=== PATIENT | male | born 1990 | race African-American/Black ===

== ENCOUNTER 2016-06-07 14:00 | Emergency (ER) | payer SELFPAY ==
[~2016-06-07] VITALS: Ht 167.6 cm; Wt 66.0 kg
[~2016-06-07 14:00] MED LIST: ACET500C5 PO; INSU100V14 SC; LANT3I SC
[2016-06-07 14:04] VITALS: Ht 167.6 cm; Wt 66.0 kg
--- NOTE | 2016-06-07 15:19 | ERD ---
ER Documentation Chief Complaint Date/Time DATE: 06/07/16 TIME: 15:16 Chief Complaint ENCOUNTER FOR MEDICATION REFILL HPI This is a 25-year-old male who presents to the emergency Department today for a medication refill. Patient states he needs his insulin syringes. Patient does not have a doctor at this time is getting his insulin over the counter at [facility]. Patient denies any symptoms at this time.. ROS All systems reviewed and are negative except as per history of present illness. Medications Home Meds Active Scripts Insulin Glargine* (Lantus*) 100 Unit/Ml Soln, 30 UNIT SC QHS for 30 Days, VIAL Prov:RADHA RAMON PA-C 12/15/15 Insulin Regular, Human (Humulin R) 100 Units/Ml Vial, 8 U SC SLIDING SCALE AC Y for hyperglycemia for 30 Days, VIAL 8-12 units subcutaneous per sliding scale with meals Prov:RADHA RAMON PA-C 12/15/15 Acetaminophen* (Tylophen*) 500 Mg Capsule, 2 CAP PO Q8H Y for PAIN AND OR ELEVATED TEMP, #20 CAP Prov:ADELE VALENTIN 07/09/15 Allergies Allergies: Coded Allergies: No Known Drug Allergy (Verified Allergy, Mild, 07/09/15) PMhx/Soc History of Surgery: No Anesthesia Reaction: No Hx Neurological Disorder: No Hx Respiratory Disorders: No Hx Cardiac Disorders: No Hx Psychiatric Problems: No Hx Miscellaneous Medical Probl: Yes (DM I) Hx Alcohol Use: No Hx Substance Use: Yes (Marijuana ) Hx Tobacco Use: No Physical Exam Vitals Vital Signs Date Time Temp Pulse Resp B/P Pulse Ox O2 Delivery O2 Flow Rate FiO2 06/07/16 14:04 97.7 93 16 127/86 96 Physical Exam Const: Cooperative, no acute distress Head: Atraumatic Eyes: Normal Conjunctiva ENT: Normal External Ears, Nose and Mouth. Neck: Full range of motion..~ No meningismus. Resp: Clear to auscultation bilaterally Cardio: Regular rate and rhythm, no murmurs Abd: Soft, non tender, non distended. Normal bowel sounds Skin: No petechiae or rashes Neur: Awake and alert Psych: Normal Mood and Affect Procedures/MDM This is a 25-year-old male who presents to the emergency department today for medication refill on syringes for his insulin. He is a known type I diabetic here in the emergency department. Patient does not currently have a primary care physician as he states that he lost his medical insurance. States he isn't buying his insulin over the counter at [facility]. I did complain to the patient and he does need to get a primary care physician if given him a list of resources. Patient is currently not drinking any symptoms and has no complaints. Patient was given a prescription for syringes for his insulin. At this time the patient is stable for discharge and outpatient management. Patient should follow up with their PCP in the next 1-2 days. They may return to the emergency department sooner for any persistent or worsening of symptoms. Patient understood and agreed with the plan. Departure Diagnosis: Primary Impression: Encounter for medication refill Condition: Fair Patient Instructions: Taking Medicine Safely Referrals: COMMUNITY CLINICS YOU HAVE RECEIVED A MEDICAL SCREENING EXAM AND THE RESULTS INDICATE THAT YOU DO NOT HAVE A CONDITION THAT REQUIRES URGENT TREATMENT IN THE EMERGENCY DEPARTMENT. FURTHER EVALUATION AND TREATMENT OF YOUR CONDITION CAN WAIT UNTIL YOU ARE SEEN IN YOUR DOCTORS OFFICE WITHIN THE NEXT 1-2 DAYS. IT IS YOUR RESPONSIBILITY TO MAKE AN APPOINTMENT FOR FOLOW-UP CARE. IF YOU HAVE A PRIMARY DOCTOR --you should call your primary doctor and schedule an appointment IF YOU DO NOT HAVE A PRIMARY DOCTOR YOU CAN CALL OUR PHYSICIAN REFERRAL HOTLINE AT IF YOU CAN NOT AFFORD TO SEE A PHYSICIAN YOU CAN CHOSE FROM THE FOLLOWING [facility] [address] [facility]. [facility] [address] [facility] [facility] [address] [facility] [facility] [address] [address] [facility] [address] [facility]. [facility]. [address] Additional Instructions: Call your primary care doctor TOMORROW for an appointment during the next 1-2 days.See the doctor sooner or return here if your condition worsens before your appointment time. Take your insulin as prescribed PROUSE,BAILEY Ray PA-C Jun 07, 2016 15:19
== END 2016-06-07 15:14 | disposition home or self-care (01) ==
LOC: FTE 14:00
DX: Z76.0 Encounter for issue of repeat prescription (principal); E10.9 Type 1 diabetes mellitus without complications; Z79.4 Long term (current) use of insulin
CPT/HCPCS: 99281

== ENCOUNTER 2017-12-28 18:46 | Emergency (ER) | END 2017-12-28 19:05 | disposition left against medical advice (07) ==

== ENCOUNTER 2018-07-26 16:06 | Inpatient (IN) | payer SELFPAY ==
[~2018-07-26] VITALS: Ht 170.2 cm; Wt 66.9 kg
[2018-07-26] MEDS ORDERED: ONDANSETRON 4 MG INJ IV STA ×2 (17:04→18:37)
[2018-07-26] MEDS ORDERED: HYDROmorphONE 1 MG/ML SYG IV STA ×2 (17:04→18:37)
[2018-07-26] MEDS ORDERED: SOD CHLORIDE 0.9% 750 ML IV ONE (17:30)
[2018-07-26] MEDS ORDERED: METOCLOPRAMIDE 10 MG INJ IV ONE (17:30)
[2018-07-26] MEDS ORDERED: SOD CHLORIDE 0.9% 1,000 ML IV STA (17:55)
[2018-07-26] MEDS ORDERED: INSULIN LISPRO 100 UNIT/ML VIAL SC ONE (18:00)
[2018-07-26] MEDS ORDERED: GLUCOSE GEL 15 GRAM TUBE BUCCAL PRN ×2 (18:30→21:30)
[2018-07-26] MEDS ORDERED: DEXTROSE 50% 50 ML SYRINGE IV PRN ×4 (18:30→21:30)
[2018-07-26] MEDS ORDERED: GLUCAGON 1 MG INJ IM PRN ×2 (18:30→21:30)
[2018-07-26] MEDS ORDERED: GLUCOSE GEL 15 GRAM TUBE PO PRN ×4 (18:30→21:30)
[2018-07-26] MEDS ORDERED: LORAZEPAM 2 MG INJ IV ONE (19:00)
--- NOTE | 2018-07-26 19:18 | ERD ---
ER Documentation Chief Complaint Chief Complaint nausea vomiting starting this morning-bs at home = 330 HPI This is a 28-year-old male who is here for intractable vomiting. The patient says he has diabetes is insulin-dependent and has been taking his insulin not much lately. Is a very poor historian and very rude to staff myself. He does not want to give us any history. The patient says that after he brushed his teeth this morning he started having intractable vomiting. Patient says his entire abdomen hurts and has no diarrhea. No cough chest pain shortness of breath or headache. Patient keeps sticking his fingers down his throat making himself vomit. He keeps asking for pain medication. ROS All systems reviewed and are negative except as per history of present illness. Medications Home Meds Active Scripts Insulin Glargine* (Lantus*) 100 Unit/Ml Soln, 30 UNIT SC QHS for 30 Days, VIAL Prov:RADHA RAMON PA-C 12/15/15 Insulin Regular, Human (Humulin R) 100 Units/Ml Vial, 8 U SC SLIDING SCALE AC PRN for hyperglycemia for 30 Days, VIAL 8-12 units subcutaneous per sliding scale with meals Prov:RADHA RAMON PA-C 12/15/15 Acetaminophen* (Tylophen*) 500 Mg Capsule, 2 CAP PO Q8H PRN for PAIN AND OR E LEVATED TEMP, #20 CAP Prov:ADELE VALENTIN 07/09/15 Allergies Allergies: Coded Allergies: No Known Drug Allergy (Verified Allergy, Mild, 07/09/15) PMhx/Soc History of Surgery: No Anesthesia Reaction: No Hx Neurological Disorder: No Hx Respiratory Disorders: No Hx Cardiac Disorders: No Hx Psychiatric Problems: No Hx Miscellaneous Medical Probl: Yes (DM I) Hx Alcohol Use: No Hx Substance Use: Yes (Marijuana ) Hx Tobacco Use: No Smoking Status: Never smoker FmHx Family History: No coronary disease Physical Exam Vitals Vital Signs Date Temp Pulse Resp B/P (MAP) Pulse Ox O2 O2 Flow FiO2 Time Delivery Rate 07/26/18 52 18 140/78 96 Room Air 18:30 (98) 07/26/18 97.9 58 18 136/90 100 16:51 (105) Physical Exam Const: Well-developed, well-nourished Head: Atraumatic, normocephalic Eyes: Normal Conjunctiva, PERRLA, EOMI, normal sclera, no nystagmus ENT: Normal External Ears, Nose and Mouth, moist mucus membranes. Neck: Full range of motion. No meningismus, no lymphadenopathy. Resp: Clear to auscultation bilaterally, no wheezing, rhonchi, rales Cardio: Regular rate and rhythm, no murmurs, S1 S2 present Abd: Soft, diffuse mild to moderate tenderness, non distended. Normal bowel sounds, no guarding or rebound, no pulsitile abdominal masses or bruits Skin: No petechiae or rashes, no ecchymosis , no maculopapular rash Back: No midline or flank tenderness Ext: No cyanosis, or edema, FROM x 4, normal inspection, neurovascularly intact x 4 Neur: Awake and alert, STR 5/5 x 4, sensation intact x 4, no focal findings, cerebellum intact Psych: Normal Mood and Affect Result Diagram: 07/26/18171607/26/187 Results 24 hrs Laboratory Tests Test 07/26/18 17:17 07/26/18 17:21 07/26/18 18:30 White Blood Count 12.3 10^3/ul Red Blood Count 4.84 10^6/ul Hemoglobin 14.3 g/dl Hematocrit 42.0 % Mean Corpuscular Volume 86.8 fl Mean Corpuscular Hemoglobin 29.5 pg Mean Corpuscular 34.0 g/dl Hemoglobin Concent Red Cell Distribution Width 11.8 % Platelet Count 281 10^3/UL Mean Platelet Volume 10.4 fl Immature Granulocytes % 0.200 % Neutrophils % 84.0 % Lymphocytes % 7.4 % Monocytes % 8.2 % Eosinophils % 0.0 % Basophils % 0.2 % Nucleated Red Blood Cells % 0.0 /100WBC Immature Granulocytes # 0.030 10^3/ul Neutrophils # 10.3 10^3/ul Lymphocytes # 0.9 10^3/ul Monocytes # 1.0 10^3/ul Eosinophils # 0.0 10^3/ul Basophils # 0.0 10^3/ul Nucleated Red Blood Cells # 0.0 10^3/ul Sodium Level 143 mmol/L Potassium Level 4.2 mmol/L Chloride Level 97 mmol/L Carbon Dioxide Level 19 mmol/L Anion Gap 27 Blood Urea Nitrogen 20 mg/dl Creatinine 1.09 mg/dl Est Glomerular Filtrat Rate mL/min > 60 mL/min Glucose Level 359 mg/dl Calcium Level 10.7 mg/dl Phosphorus Level 2.0 mg/dl Magnesium Level 1.4 mg/dl Acetone Level (Chemistry) NEGATIVE Bedside Glucose 338 mg/dL 300 mg/dL Current Medications Medications Dose Sig/Leigh Ann Start Time Status Last (Trade) Ordered Route PRN Stop Time Admin Dose Reason Admin Sodium 750 ml @ ONCE ONCE 07/26/18 DC 07/26/18 Chloride 750 mls/hr IV 17:30 17:10 07/26/18 18:29 1 mg ONCE STAT 07/26/18 DC 07/26/18 Hydromorphone IV 17:04 17:10 HCl 07/26/18 17:06 (Dilaudid) Ondansetron 4 mg ONCE STAT 07/26/18 DC 07/26/18 HCl (Zofran IV 17:04 17:10 Inj) 07/26/18 17:06 10 mg ONCE ONCE 07/26/18 DC 07/26/18 Metoclopramid IV 17:30 17:10 e HCl 07/26/18 17:31 (Reglan) Sodium 1,000 ml @ Q1H STAT 07/26/18 DC 07/26/18 Chloride 1,000 mls/hr IV 17:55 18:14 07/26/18 18:54 Insulin 8 unit ONCE ONCE 07/26/18 DC 07/26/18 Human SC 18:00 18:39 Lispro 07/26/18 18:01 (Humalog) 1 ea NOTE XX 07/26/18 Miscellaneous 18:30 Information Glucose 15 gm Q15M PRN 07/26/18 (Glutose) PO DECREASED 18:30 GLUCOSE Glucose 22.5 gm Q15M PRN 07/26/18 (Glutose) PO DECREASED 18:30 GLUCOSE Dextrose 25 ml Q15M PRN 07/26/18 (D50w IV DECREASED 18:30 Syringe) GLUCOSE Dextrose 50 ml Q15M PRN 07/26/18 (D50w IV DECREASED 18:30 Syringe) GLUCOSE Glucagon 1 mg Q15M PRN 07/26/18 (Glucagen) IM DECREASED 18:30 GLUCOSE Glucose 15 gm Q15M PRN 07/26/18 (Glutose) BUCCAL 18:30 DECREASED GLUCOSE 1 mg ONCE STAT 07/26/18 DC 07/26/18 Hydromorphone IV 18:37 18:48 HCl 07/26/18 18:40 (Dilaudid) Ondansetron 4 mg ONCE STAT 07/26/18 DC 07/26/18 HCl (Zofran IV 18:37 18:47 Inj) 07/26/18 18:40 Lorazepam 1 mg ONCE ONCE 07/26/18 DC 07/26/18 (Ativan) IV 19:00 18:48 07/26/18 19:01 Procedures/MDM MR #: [id number] DOS: 07/26/18 1744 Ordering MD: ERIC RALPH DO Location: E/R Room/Bed: PROCEDURE: CT abdomen and pelvis without contrast. CLINICAL INDICATION: Abdominal pain. TECHNIQUE: CT scan of the abdomen and pelvis without contrast was performed on a multi-slice CT scanner . Sagittal and coronal reformatted images were obtained from the axial source images. One or more of the following dose reduction techniques were used: - Automated exposure control. - Adjustment of the mA and/or kV according to patient size. - Use of iterative reconstruction technique. DICOM images are available DLP 350.3 mGycm. CTDIvol 5.7 mGy COMPARISON: 07/14/2013 FINDINGS: Fine detail of the soft tissues is limited secondary to the lack of IV contrast. Evaluation for enhancing lesions cannot be performed. Lower thorax:The lung bases are clear. Liver: There is uniform density of the liver with no gross focal lesion. Biliary: The gallbladder is unremarkable without surrounding inflammation. No biliary dilatation. Pancreas: Homogeneous density of the pancreas without visible focal lesion or cystic abnormality. There is no pancreatic ductal dilatation. Spleen: Unremarkable without enlargement or focal lesion. Adrenal Glands: The adrenal glands are within normal limits without mass. Urinary: The kidneys are symmetric in size bilaterally. There are no visible renal or ureteral stones. There is no hydronephrosis. Gastrointestinal: There is colonic wall thickening and edema with decompression of the colon diffusely. Trace adjacent fat stranding is present. A normal- appearing appendix is not visible. There is no obstruction. Lymph nodes: There are no enlarged lymph nodes. Vascular: The aorta is unremarkable. Peritoneum/mesentery: No free fluid or free air. Reproductive organs: The prostate is grossly unremarkable. Musculoskeletal: There is no acute osseous abnormality. Other: None IMPRESSION: Findings suggestive for colitis which may be infectious or inflammatory without obstruction. There is no normal appearing appendix and this may be obscured by adjacent structures. No renal or ureteral calculi with no evidence of hydronephrosis. RPTAT: AA .Yolanda Castrejon MD, Date Time Electronically viewed and signed by .Yolanda Castrejon MD, MD on 07/26/2018 18:19 .J/ CC: ERIC RALPH DO [id number] Patient was given IV fluids, Dilaudid and Zofran and Reglan. Patient was fine for a while but he said his pain began again with some more vomiting. The patient is not in DKA although he is acidotic and has a gap is acetone is negative this is likely due to dehydration. Patient has diffuse colon wall thickening with edema and fat stranding consistent with colitis. In light of this with intractable nausea vomiting with being an insulin-dependent diabetic and bordering on going into DKA will admit him for fluids, pain control, antibiotics and observation Departure Diagnosis: Primary Impression: Colitis Additional Impressions: Intractable vomiting Vomiting type: unspecified Nausea presence: with nausea Qualified Codes: R11.2 - Nausea with vomiting, unspecified Uncontrolled diabetes mellitus Diabetes mellitus type: type 1 Glycemic state: with hyperglycemia Qualified Codes: E10.65 - Type 1 diabetes mellitus with hyperglycemia Condition: Stable ERIC RALPH DO Jul 26, 2018 19:18
[2018-07-26] MEDS ORDERED: SOD CHLORIDE 0.9% 1,000 ML IV SCH (19:49)
[2018-07-26] MEDS ORDERED: ERTAPENEM SODIUM 1 GM in SOD CHLORIDE 0.9% 100 ML IVPB ONE (20:00)
[2018-07-26] MEDS ORDERED: NACL 0.9% 3 ML SYG IV SCH (20:00)
[2018-07-26] MEDS ORDERED: ACETAMINOPHEN 325 MG TAB PO PRN (20:00)
--- NOTE | 2018-07-26 20:51 | HP ---
Date/Time of Note Date/Time of Note DATE: 07/26/18 TIME: 20:45 Assessment/Plan VTE Prophylaxis Pharmacological prophylaxis: heparin Lines/Catheters IV [facility]ter [facility]from [facility] Peripheral IV Assessment/Plan Hospital Course This is a 28-year-old male with a history of type 1 diabetes and heavy marijuana use who presents with nausea and vomiting as well as severe hyperglycemia. Imaging findings are suggestive of colitis. It is not clear to me whether this is an infectious colitis or not. He does have diarrhea but his GI symptoms seem to consist most only of nausea and vomiting. It is possible this is related to his marijuana use as he himself can sitters. Regardless at this point we will continue antibiotics and treat hyperglycemia Colitis: -Continue empiric antibiotics though not clear at all that this is not a bacterial infection. We should have a low threshold to stop them -We will check a C. difficile PCR -Symptomatic care Diabetes type 1 with hyperglycemia: -Basal bolus insulin - Poor control here though he says he is adherent to daily insulin regimen Marijuana use disorder: -Advised on cessation Discharge plan is pending improvement in his symptoms but he is high functioning and will not require any skilled needs at discharge Result Diagram: 07/26/18 1717 07/26/18 1717 Results 24hrs Laboratory Tests Test 07/26/18 17:17 07/26/18 17:21 07/26/18 18:30 White Blood Count 12.3 #H Red Blood Count 4.84 Hemoglobin 14.3 Hematocrit 42.0 Mean Corpuscular Volume 86.8 Mean Corpuscular Hemoglobin 29.5 Mean Corpuscular Hemoglobin Concent 34.0 Red Cell Distribution Width 11.8 Platelet Count 281 Mean Platelet Volume 10.4 # Immature Granulocytes % 0.200 Neutrophils % 84.0 H Lymphocytes % 7.4 L Monocytes % 8.2 Eosinophils % 0.0 Basophils % 0.2 Nucleated Red Blood Cells % 0.0 Immature Granulocytes # 0.030 Neutrophils # 10.3 H Lymphocytes # 0.9 Monocytes # 1.0 H Eosinophils # 0.0 Basophils # 0.0 Nucleated Red Blood Cells # 0.0 Sodium Level 143 Potassium Level 4.2 Chloride Level 97 Carbon Dioxide Level 19 L Anion Gap 27 H Blood Urea Nitrogen 20 Creatinine 1.09 Est Glomerular Filtrat Rate mL/min > 60 Glucose Level 359 H Calcium Level 10.7 H Phosphorus Level 2.0 L Magnesium Level 1.4 L Acetone Level (Chemistry) NEGATIVE Bedside Glucose 338 H 300 H HPI/ROS Admit Date/Time Admit Date/Time Hx of Present Illness This is a 28-year-old male with a history of type 1 diabetes with poor control who comes in with nausea vomiting abdominal pain Patient provides somewhat of an odd history. He says that for the past couple days when he brushes teeth the toothpaste makes him nauseous and then he has disabling nausea with abdominal pain. he says this is happened just since yesterday and seems to attribute all symptoms to toothpaste. Yesterday it was tolerable but today lasted for hours and symptoms became intolerable so he came to the hospital he also reports watery diarrhea just since today. Of note he is a chronic marijuana user and does seem to find some relief with hot showers I r aise the question of cannabinoid hyperemesis syndrome and he seemed to think that this fit his symptoms fairly clearly.. That said however in the ED he had a CAT scan which showed colitis. He denies any fevers denies any history of colitis denies any blood or mucus in his stool. His diarrhea today has just been watery PMH/Family/Social Past Medical History Medical History: diabetes Medications Current Medications Miscellaneous Information 1 ea NOTE XX ; Start 07/26/18 at 18:30 Glucose (Glutose) 15 gm Q15M PRN PO DECREASED GLUCOSE; Start 07/26/18 at 18:30 Glucose (Glutose) 22.5 gm Q15M PRN PO DECREASED GLUCOSE; Start 07/26/18 at 18:30 Dextrose (D50w Syringe) 25 ml Q15M PRN IV DECREASED GLUCOSE; Start 07/26/18 at 18:30 Dextrose (D50w Syringe) 50 ml Q15M PRN IV DECREASED GLUCOSE; Start 07/26/18 at 18:30 Glucagon (Glucagen) 1 mg Q15M PRN IM DECREASED GLUCOSE; Start 07/26/18 at 18:30 Glucose (Glutose) 15 gm Q15M PRN BUCCAL DECREASED GLUCOSE; Start 07/26/18 at 18:30 Sodium Chloride 1,000 ml @ 80 mls/hr [id number] IV ; Start 07/26/18 at 19:49; Stop 07/27/18 at 08:18 Ondansetron HCl (Zofran Inj) 4 mg BRIDGE ORDER PRN IV NAUSEA/VOMITING; Start 07/26/18 at 20:00; Stop 07/27/18 at 19:59 Acetaminophen (Tylenol Tab) 650 mg ER BRIDGE PRN PO .MILD PAIN 1-3 OR TEMP; Start 07/26/18 at 20:00; Stop 07/27/18 at 19:59 Piperacillin Sod/ Tazobactam Sod 100 ml @ 200 mls/hr Q8 IVPB ; Start 07/26/18 at 22:00; Status UNV Insulin Glargine (Lantus) 19 units DAILY@2000 SC ; Start 07/26/18 at 20:00; Status UNV Insulin Aspart (Novolog Insulin Pen) 5 unit WITH MEALS SC ; Start 07/27/18 at 08:00; Status UNV Insulin Aspart (Novolog Insulin Pen) NOVOLOG *MODERATE* ALGORITHM WITH MEALS BEDTIME SC ; Start 07/26/18 at 21:00; Status UNV IV Flush (NS 3 ml) 3 ml PER PROTOCOL IV ; Start 07/26/18 at 20:00; Status UNV Acetaminophen/ Hydrocodone Bitart ([place] (5/325)) 2 tab Q6H PRN PO .SEVERE PAIN 7-10; Start 07/26/18 at 20:00; Status UNV Coded Allergies: No Known Drug Allergy (Verified Allergy, Mild, 07/09/15) Past Surgical History Past Surgical Hx: no surgical history Family History Significant Family History: no pertinent family hx Social History Alcohol Use: none Smoking Status: Never smoker Drug Use: marijuana Exam/Review of Systems Vital Signs Vitals Vital Signs Date Temp Pulse Resp B/P (MAP) Pulse Ox O2 O2 Flow FiO2 Time Delivery Rate 07/26/18 52 18 140/78 96 Room Air 18:30 (98) 07/26/18 97.9 16:51 Exam Constitutional: alert, oriented, well developed Psych: no complaints, nl mood/affect Head: normocephalic, atraumatic Eyes: nl conjunctiva, EOMI, nl lids, nl sclera, PERRL ENMT: nl external ears & nose, nl lips & teeth, nl nasal mucosa & septum Neck: supple, non-tender Respiratory: clear to auscultation, normal air movement Cardiovascular: regular rate and rhythm, nl pulses Gastrointestinal: soft, nl liver, spleen, non-tender Musculoskeletal: nl extremities to inspection Extremities: normal pulses Neurological: [employer]ODUCTION MANAGER II-XII intact, nl mental status, nl speech, nl strength Skin: nl turgor; No rash or lesions Lymph: nl lymph nodes IAIN JOHNSON MD Jul 26, 2018 20:51
[2018-07-26 22:17] VITALS: BP 110/54; PULSE 71; RESP 18
[2018-07-26] MEDS: PIPER-TAZO 3.375 GM IV (PMX) 100 ML IVPB SCH (22:21)
[2018-07-26] MEDS ORDERED: HUM100VI13 SQ (22:25)
[2018-07-26 22:34] VITALS: Ht 170.2 cm; Wt 66.9 kg
[2018-07-26] MEDS: INSULIN ASPART [NOVOLOG] 3 ML PEN SC SCH (23:39)
[2018-07-26] MEDS: INSULIN GLARGINE [LANTus] (100 UNITS/ML) SYG SC SCH (23:39)
[2018-07-27 02:15] VITALS: BP 139/63; RESP 18
[2018-07-27] MEDS: PIPER-TAZO 3.375 GM IV (PMX) 100 ML IVPB SCH ×3 (06:33→21:03)
[2018-07-27 07:37] VITALS: BP 135/75; PULSE 76; RESP 16
[2018-07-27] MEDS: ONDANSETRON 4 MG INJ IV PRN ×3 (07:55→20:55)
[2018-07-27] MEDS: INSULIN ASPART [NOVOLOG] 3 ML PEN SC SCH ×7 (09:36→21:55)
[2018-07-27] MEDS ORDERED: METOCLOPRAMIDE 10 MG INJ IV PRN (11:30)
--- NOTE | 2018-07-27 14:23 | CONS ---
Assessment/Plan Assessment/Plan Hospital Course (Demo Recall) Summary Assessment and Plan: Assessment: Diarrhea- stool studies pending Colitis on imaging -Infectious vs inflammatory Abdominal pain- 2/2 to above Nausea/vomiting -Cannabinoid hyperemesis syndrome versus gastroparesis vs PUD vs other DM, type 1 Hx of PCI with stent placement in 2017 Chronic excessive Marijuana use Plan: CDIFF - negative PPI BID Monitor labs will ordered ESR, CRP Plan for EGD/colonoscopy- tomorrow Will prep with lactulose q2hr x4 doses- if patient is able to tolerate Will change Reglan to OTC q6hrs NPO except ice chips/meds- Reviewed risks/benefits with patient who verbalized understanding and is agreeable to procedure Patient seen in collaboration with Dr. Camacho CC: ISACC CAMACHO MD ; Consultation Date/Type/Reason Admit Date/Time Date of Consultation: Jul 27, 2018 Type of Consult GI Reason for Consultation Colitis/nausea/vomiting Date/Time of Note DATE: 07/27/18 TIME: 13:36 Hx of Present Illness This is a 28 year old male with PMH of PCI with stent placement in 2017, DM, type 1, chronic marijuana use, who presented to the ED with c/o persistent nausea/vomiting/diarrhea/generalized abdominal pain. He initially noted increased nausea after brushing his teeth however throughout the day symptoms of nausea/vomiting became progressively worse associated with generalized abdominal pain and diarrhea. Patient came to the ED for further evaluation. With workup patient noted to have leukocytosis of 12.3 today is 15.1 hemoglobin is 12.6 today with a normal MCV and MCH, with indirect hyperbilirubinemia and an AST of 58 with a normal ALT of 31. Additionally a CT abdomen pelvis was obtained, impression indicates findings suggestive of colitis is unclear if this is secondary to infection versus inflammatory process. No obstruction is noted. There there is no normal-appearing appendix and this may be obscured by adjacent structures. No renal or ureteral calculi with no evidence of hydronephrosis. At time evaluation patient states he needs to have watery diarrhea to 3 times per day. Continues to have nausea/vomiting however symptoms improved with pain med ication and nausea medication. Of note patient has taken 4 showers today which seems to help with symptoms and goes along with can avoid hyperemesis syndrome. No c/o melena, hematochezia.or hematemesis. Pending work up patient may require endoscopic evaluation. Review of Systems: A 12 system, review was conducted and is negative except as noted in the HPI or here. Past Medical History Medical History: diabetes Home Meds Active Scripts Insulin Regular, Human (Humulin R) 100 Units/Ml Vial, 8 U SC SLIDING SCALE AC PRN for hyperglycemia for 30 Days, VIAL 8-12 units subcutaneous per sliding scale with meals Prov:RADHA RAMON PA-C 12/15/15 Acetaminophen* (Tylophen*) 500 Mg Capsule, 2 CAP PO Q8H PRN for PAIN AND OR ELEVATED TEMP, #20 CAP Prov:ADELE VALENTIN 07/09/15 Reported Medications Insulin NPH Hum/Reg Insulin Hm (Relion Novolin 70-30 Vial) 100 Unit/1 Ml Vial, 30 UNIT SQ TIDM A, VIAL 07/26/18 Discontinued Scripts Insulin Glargine* (Lantus*) 100 Unit/Ml Soln, 30 UNIT SC QHS for 30 Days, VIAL Prov:RADHA RAMNO PA-C 12/15/15 Medications Current Medications Miscellaneous Information 1 ea NOTE XX ; Start 07/26/18 at 18:30 Glucose (Glutose) 15 gm Q15M PRN PO DECREASED GLUCOSE; Start 07/26/18 at 18:30 Glucose (Glutose) 22.5 gm Q15M PRN PO DECREASED GLUCOSE; Start 07/26/18 at 18:30 Dextrose (D50w Syringe) 25 ml Q15M PRN IV DECREASED GLUCOSE; Start 07/26/18 at 18:30 Dextrose (D50w Syringe) 50 ml Q15M PRN IV DECREASED GLUCOSE; Start 07/26/18 at 18:30 Glucagon (Glucagen) 1 mg Q15M PRN IM DECREASED GLUCOSE; Start 07/26/18 at 18:30 Glucose (Glutose) 15 gm Q15M PRN BUCCAL DECREASED GLUCOSE; Start 07/26/18 at 18:30 Ondansetron HCl (Zofran Inj) 4 mg BRIDGE ORDER PRN IV NAUSEA/VOMITING Last administered on 07/27/18at 07:55; Admin Dose 4 MG; Start 07/26/18 at 20:00; Stop 07/27/18 at 19:59 Acetaminophen (Tylenol Tab) 650 mg ER BRIDGE PRN PO .MILD PAIN 1-3 OR TEMP; Start 07/26/18 at 20:00; Stop 07/27/18 at 19:59 Piperacillin Sod/ Tazobactam Sod 100 ml @ 200 mls/hr Q8 IVPB Last administered on 07/27/18at 06:33; Admin Dose 200 MLS/HR; Start 07/26/18 at 22:00 Insulin Glargine (Lantus) 19 units DAILY@2000 SC Last administered on 07/26/18at 23:39; Admin Dose 19 UNITS; Start 07/26/18 at 20:00 Insulin Aspart (Novolog Insulin Pen) 5 unit WITH MEALS SC Last administered on 07/27/18 12:53; Admin Dose 5 UNIT; Start 07/27/18 at 08:00 Insulin Aspart (Novolog Insulin Pen) NOVOLOG *MODERATE* ALGORITHM WITH MEALS BEDTIME SC Last administered on 07/27/18 12:53; Admin Dose 4 UNIT; Start 07/26/18 at 21:00 IV Flush (NS 3 ml) 3 ml PER PROTOCOL IV ; Start 07/26/18 at 20:00 Acetaminophen/ Hydrocodone Bitart ([place] (5/325)) 2 tab Q6H PRN PO .SEVERE PAIN 7-10; Start 07/26/18 at 20:00 Miscellaneous Information 1 ea NOTE XX ; Start 07/26/18 at 21:30 Glucose (Glutose) 15 gm Q15M PRN PO DECREASED GLUCOSE; Start 07/26/18 at 21:30 Glucose (Glutose) 22.5 gm Q15M PRN PO DECREASED GLUCOSE; Start 07/26/18 at 21:30 Dextrose (D50w Syringe) 25 ml Q15M PRN IV DECREASED GLUCOSE; Start 07/26/18 at 21:30 Dextrose (D50w Syringe) 50 ml Q15M PRN IV DECREASED GLUCOSE; Start 07/26/18 at 21:30 Glucagon (Glucagen) 1 mg Q15M PRN IM DECREASED GLUCOSE; Start 07/26/18 at 21:30 Glucose (Glutose) 15 gm Q15M PRN BUCCAL DECREASED GLUCOSE; Start 07/26/18 at 21:30 Metoclopramide HCl (Reglan) 10 mg Q4H PRN IV VOMITTING Last administered on 07/27/18at 11:39; Admin Dose 10 MG; Start 07/27/18 at 11:30 Allergies: Coded Allergies: No Known Drug Allergy (Unverified Allergy, Mild, 07/26/18) Past Surgical History Past Surgical Hx: no surgical history Social History Alcohol Use: none Smoking Status: Never smoker Drug Use: marijuana Exam/Review of Systems Exam Vitals Vital Signs Date Temp Pulse Resp B/P (MAP) Pulse Ox O2 O2 Flow FiO2 Time Delivery Rate 07/27/18 98.9 76 16 135/75 97 07:37 (95) 07/26/18 Room Air 21:54 Intake and Output 07/26/18 07/26/18 07/27/18 1515:00 23:00 07:00 IntakeIntake Total 950 ml 580 ml BalanceBalance 950 ml 580 ml Constitutional: alert, oriented Psych: no complaints Head: normocephalic, atraumatic Eyes: nl conjunctiva ENMT: nl external ears & nose, nl lips & teeth Neck: supple Respiratory: clear to auscultation, normal air movement Cardiovascular: regular rate and rhythm Gastrointestinal: soft, non-tender, bowel sounds; No ascites, No distended, No firm, No mass Musculoskeletal: nl extremities to inspection Results Result Diagram: 07/27/184 07/27/18 0444 Results 24hrs Laboratory Tests Test 07/26/18 17:17 07/26/18 17:21 07/26/18 18:30 07/26/18 23:35 White Blood Count 12.3 #H Red Blood Count 4.84 Hemoglobin 14.3 Hematocrit 42.0 Mean Corpuscular 86.8 Volume Mean Corpuscular 29.5 Hemoglobin Mean Corpuscular 34.0 Hemoglobin Concent Red Cell 11.8 Distribution Width Platelet Count 281 Mean Platelet Volume 10.4 # Immature 0.200 Granulocytes % Neutrophils % 84.0 H Lymphocytes % 7.4 L Monocytes % 8.2 Eosinophils % 0.0 Basophils % 0.2 Nucleated Red Blood 0.0 Cells % Immature 0.030 Granulocytes # Neutrophils # 10.3 H Lymphocytes # 0.9 Monocytes # 1.0 H Eosinophils # 0.0 Basophils # 0.0 Nucleated Red Blood 0.0 Cells # Sodium Level 143 Potassium Level 4.2 Chloride Level 97 Carbon Dioxide Level 19 L Anion Gap 27 H Blood Urea Nitrogen 20 Creatinine 1.09 Est Glomerular > 60 Filtrat Rate mL/min Glucose Level 359 H Calcium Level 10.7 H Phosphorus Level 2.0 L Magnesium Level 1.4 L Acetone Level NEGATIVE (Chemistry) Bedside Glucose 338 H 300 H 127 Test 07/27/18 04:44 07/27/18 07:59 07/27/18 09:32 07/27/18 12:18 White Blood Count 15.1 #H Red Blood Count 4.18 L Hemoglobin 12.6 L Hematocrit 36.9 L Mean Corpuscular 88.3 Volume Mean Corpuscular 30.1 Hemoglobin Mean Corpuscular 34.1 Hemoglobin Concent Red Cell 11.8 Distribution Width Platelet Count 228 Mean Platelet Volume 10.2 Immature 0.700 H Granulocytes % Neutrophils % 81.4 H Lymphocytes % 11.3 L Monocytes % 6.4 Eosinophils % 0.0 Basophils % 0.2 Nucleated Red Blood 0.0 Cells % Immature 0.110 H Granulocytes # Neutrophils # 12.3 H Lymphocytes # 1.7 Monocytes # 1.0 H Eosinophils # 0.0 Basophils # 0.0 Nucleated Red Blood 0.0 Cells # Sodium Level 145 H Potassium Level 4.1 Chloride Level 103 Carbon Dioxide Level 23 Anion Gap 19 #H Blood Urea Nitrogen 20 Creatinine 1.01 Est Glomerular > 60 Filtrat Rate mL/min Glucose Level 212 # Hemoglobin A1c 7.8 H Calcium Level 9.6 Total Bilirubin 1.8 H Direct Bilirubin 0.00 Indirect Bilirubin 1.8 H Aspartate Amino 58 H Transf (AST/SGOT) Alanine 31 Aminotransferase (AL T/SGPT) Alkaline Phosphatase 55 Total Protein 7.5 Albumin 4.4 Globulin 3.10 Albumin/Globulin 1.41 Ratio Bedside Glucose 201 221 H 218 Medications Medication Current Medications Miscellaneous Information 1 ea NOTE XX ; Start 07/26/18 at 18:30 Glucose (Glutose) 15 gm Q15M PRN PO DECREASED GLUCOSE; Start 07/26/18 at 18:30 Glucose (Glutose) 22.5 gm Q15M PRN PO DECREASED GLUCOSE; Start 07/26/18 at 18:30 Dextrose (D50w Syringe) 25 ml Q15M PRN IV DECREASED GLUCOSE; Start 07/26/18 at 18:30 Dextrose (D50w Syringe) 50 ml Q15M PRN IV DECREASED GLUCOSE; Start 07/26/18 at 18:30 Glucagon (Glucagen) 1 mg Q15M PRN IM DECREASED GLUCOSE; Start 07/26/18 at 18:30 Glucose (Glutose) 15 gm Q15M PRN BUCCAL DECREASED GLUCOSE; Start 07/26/18 at 18:30 Ondansetron HCl (Zofran Inj) 4 mg BRIDGE ORDER PRN IV NAUSEA/VOMITING Last administered on 07/27/18at 07:55; Admin Dose 4 MG; Start 07/26/18 at 20:00; Stop 07/27/18 at 19:59 Acetaminophen (Tylenol Tab) 650 mg ER BRIDGE PRN PO .MILD PAIN 1-3 OR TEMP; Start 07/26/18 at 20:00; Stop 07/27/18 at 19:59 Piperacillin Sod/ Tazobactam Sod 100 ml @ 200 mls/hr Q8 IVPB Last administered on 07/27/18at 06:33; Admin Dose 200 MLS/HR; Start 07/26/18 at 22:00 Insulin Glargine (Lantus) 19 units DAILY@2000 SC Last administered on 07/26/18 23:39; Admin Dose 19 UNITS; Start 07/26/18 at 20:00 Insulin Aspart (Novolog Insulin Pen) 5 unit WITH MEALS SC Last administered on 07/27/18at 12:53; Admin Dose 5 UNIT; Start 07/27/18 at 08:00 Insulin Aspart (Novolog Insulin Pen) NOVOLOG *MODERATE* ALGORITHM WITH MEALS B EDTIME SC Last administered on 07/27/18 12:53; Admin Dose 4 UNIT; Start 07/26/18 at 21:00 IV Flush (NS 3 ml) 3 ml PER PROTOCOL IV ; Start 07/26/18 at 20:00 Acetaminophen/ Hydrocodone Bitart ([place] (5/325)) 2 tab Q6H PRN PO .SEVERE PAIN 7-10; Start 07/26/18 at 20:00 Miscellaneous Information 1 ea NOTE XX ; Start 07/26/18 at 21:30 Glucose (Glutose) 15 gm Q15M PRN PO DECREASED GLUCOSE; Start 07/26/18 at 21:30 Glucose (Glutose) 22.5 gm Q15M PRN PO DECREASED GLUCOSE; Start 07/26/18 at 21:30 Dextrose (D50w Syringe) 25 ml Q15M PRN IV DECREASED GLUCOSE; Start 07/26/18 at 21:30 Dextrose (D50w Syringe) 50 ml Q15M PRN IV DECREASED GLUCOSE; Start 07/26/18 at 21:30 Glucagon (Glucagen) 1 mg Q15M PRN IM DECREASED GLUCOSE; Start 07/26/18 at 21:30 Glucose (Glutose) 15 gm Q15M PRN BUCCAL DECREASED GLUCOSE; Start 07/26/18 at 21:30 Metoclopramide HCl (Reglan) 10 mg Q4H PRN IV VOMITTING Last administered on 07/27/18at 11:39; Admin Dose 10 MG; Start 07/27/18 at 11:30 JOSE PATEL Jul 27, 2018 13:46
[2018-07-27] MEDS: HYDROCODONE/APAP (5/325) TAB PO PRN ×2 (14:32→20:56)
[2018-07-27 15:24] VITALS: BP 133/66; PULSE 56; RESP 16
--- NOTE | 2018-07-27 15:31 | PN ---
Date/Time of Note Date/Time of Note DATE: 07/27/18 TIME: 15:21 Assessment/Plan VTE Prophylaxis Risk score (from Ns)>0 risk: 0 SCD applied (from Ns): Yes Pharmacological prophylaxis: other Pharm contraindication: low risk/ambulating Lines/Catheters IV Catheter Type [facility]from [facility] Peripheral IV Urinary Cath still in place: No Assessment/Plan Assessment/Plan 1. Nausea/vomiting, cannabinoid hyperemesis syndrome versus gastroparesis vs PUD vs other, on PPI 2. Colitis on CT scan with leukocytosis, negative for C. diff, on zosyn, follow up with GI 3. DM, type 1, insulin 4. CAD, s/p PCI with stent placement in 2017 5. Chronic excessive Marijuana use Result Diagram: 07/27/184 07/27/18 0444 Results 24hrs Laboratory Tests Test 07/26/18 17:17 07/26/18 17:21 07/26/18 18:30 07/26/18 23:35 White Blood Count 12.3 #H Red Blood Count 4.84 Hemoglobin 14.3 Hematocrit 42.0 Mean Corpuscular 86.8 Volume Mean Corpuscular 29.5 Hemoglobin Mean Corpuscular 34.0 Hemoglobin Concent Red Cell 11.8 Distribution Width Platelet Count 281 Mean Platelet Volume 10.4 # Immature 0.200 Granulocytes % Neutrophils % 84.0 H Lymphocytes % 7.4 L Monocytes % 8.2 Eosinophils % 0.0 Basophils % 0.2 Nucleated Red Blood 0.0 Cells % Immature 0.030 Granulocytes # Neutrophils # 10.3 H Lymphocytes # 0.9 Monocytes # 1.0 H Eosinophils # 0.0 Basophils # 0.0 Nucleated Red Blood 0.0 Cells # Sodium Level 143 Potassium Level 4.2 Chloride Level 97 Carbon Dioxide Level 19 L Anion Gap 27 H Blood Urea Nitrogen 20 Creatinine 1.09 Est Glomerular > 60 Filtrat Rate mL/min Glucose Level 359 H Calcium Level 10.7 H Phosphorus Level 2.0 L Magnesium Level 1.4 L Acetone Level NEGATIVE (Chemistry) Bedside Glucose 338 H 300 H 127 Test 07/27/18 04:44 07/27/18 07:59 07/27/18 09:32 07/27/18 12:18 White Blood Count 15.1 #H Red Blood Count 4.18 L Hemoglobin 12.6 L Hematocrit 36.9 L Mean Corpuscular 88.3 Volume Mean Corpuscular 30.1 Hemoglobin Mean Corpuscular 34.1 Hemoglobin Concent Red Cell 11.8 Distribution Width Platelet Count 228 Mean Platelet Volume 10.2 Immature 0.700 H Granulocytes % Neutrophils % 81.4 H Lymphocytes % 11.3 L Monocytes % 6.4 Eosinophils % 0.0 Basophils % 0.2 Nucleated Red Blood 0.0 Cells % Immature 0.110 H Granulocytes # Neutrophils # 12.3 H Lymphocytes # 1.7 Monocytes # 1.0 H Eosinophils # 0.0 Basophils # 0.0 Nucleated Red Blood 0.0 Cells # Sodium Level 145 H Potassium Level 4.1 Chloride Level 103 Carbon Dioxide Level 23 Anion Gap 19 #H Blood Urea Nitrogen 20 Creatinine 1.01 Est Glomerular > 60 Filtrat Rate mL/min Glucose Level 212 # Hemoglobin A1c 7.8 H Calcium Level 9.6 Total Bilirubin 1.8 H Direct Bilirubin 0.00 Indirect Bilirubin 1.8 H Aspartate Amino 58 H Transf (AST/SGOT) Alanine 31 Aminotransferase (AL T/SGPT) Alkaline Phosphatase 55 Total Protein 7.5 Albumin 4.4 Globulin 3.10 Albumin/Globulin 1.41 Ratio Bedside Glucose 201 221 H 218 Subjective 24 Hr Interval Summary Free Text/Dictation still with nausea, vomiting and diarrhea, abdominal pain Exam/Review of Systems Exam Vitals Vital Signs Date Temp Pulse Resp B/P (MAP) Pulse Ox O2 O2 Flow FiO2 Time Delivery Rate 07/27/18 98.9 76 16 135/75 97 07:37 (95) 07/26/18 Room Air 21:54 Intake and Output 07/26/18 07/26/18 07/27/18 1515:00 23:00 07:00 IntakeIntake Total 950 ml 580 ml BalanceBalance 950 ml 580 ml Constitutional: oriented, well developed Head: normocephalic, atraumatic Eyes: nl conjunctiva, EOMI, nl lids ENMT: nl external ears & nose, nl lips & teeth, nl nasal mucosa & septum Neck: supple, non-tender Respiratory: clear to auscultation, normal air movement; No congested cough, No crackles/rales, No diminished breath sounds, No intercostal retraction, No labored breathing, No respirations, No tactile fremitus, No wheezing, No other Cardiovascular: regular rate and rhythm, nl pulses; No bruits, No diastolic murmur, No edema, No gallop, No irregular rhythm, No jugular venous distention (JVD), No murmurs/extra sounds, No rub, No systolic murmur, No S3, No S4, No other Gastrointestinal: soft, nl liver, spleen, tender (diffuse) Musculoskeletal: nl extremities to inspection Extremities: normal pulses; No calf tenderness, No cyanosis, No clubbing, No edema, No pitting pedal maikol ma, No palpable cord, No tenderness, No other Neurological: 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, nl mental status, nl speech, nl strength Results Results 24hrs Laboratory Tests Test 07/26/18 17:17 07/26/18 17:21 07/26/18 18:30 07/26/18 23:35 White Blood Count 12.3 #H Red Blood Count 4.84 Hemoglobin 14.3 Hematocrit 42.0 Mean Corpuscular 86.8 Volume Mean Corpuscular 29.5 Hemoglobin Mean Corpuscular 34.0 Hemoglobin Concent Red Cell 11.8 Distribution Width Platelet Count 281 Mean Platelet Volume 10.4 # Immature 0.200 Granulocytes % Neutrophils % 84.0 H Lymphocytes % 7.4 L Monocytes % 8.2 Eosinophils % 0.0 Basophils % 0.2 Nucleated Red Blood 0.0 Cells % Immature 0.030 Granulocytes # Neutrophils # 10.3 H Lymphocytes # 0.9 Monocytes # 1.0 H Eosinophils # 0.0 Basophils # 0.0 Nucleated Red Blood 0.0 Cells # Sodium Level 143 Potassium Level 4.2 Chloride Level 97 Carbon Dioxide Level 19 L Anion Gap 27 H Blood Urea Nitrogen 20 Creatinine 1.09 Est Glomerular > 60 Filtrat Rate mL/min Glucose Level 359 H Calcium Level 10.7 H Phosphorus Level 2.0 L Magnesium Level 1.4 L Acetone Level NEGATIVE (Chemistry) Bedside Glucose 338 H 300 H 127 Test 07/27/18 04:44 07/27/18 07:59 07/27/18 09:32 07/27/18 12:18 White Blood Count 15.1 #H Red Blood Count 4.18 L Hemoglobin 12.6 L Hematocrit 36.9 L Mean Corpuscular 88.3 Volume Mean Corpuscular 30.1 Hemoglobin Mean Corpuscular 34.1 Hemoglobin Concent Red Cell 11.8 Distribution Width Platelet Count 228 Mean Platelet Volume 10.2 Immature 0.700 H Granulocytes % Neutrophils % 81.4 H Lymphocytes % 11.3 L Monocytes % 6.4 Eosinophils % 0.0 Basophils % 0.2 Nucleated Red Blood 0.0 Cells % Immature 0.110 H Granulocytes # Neutrophils # 12.3 H Lymphocytes # 1.7 Monocytes # 1.0 H Eosinophils # 0.0 Basophils # 0.0 Nucleated Red Blood 0.0 Cells # Sodium Level 145 H Potassium Level 4.1 Chloride Level 103 Carbon Dioxide Level 23 Anion Gap 19 #H Blood Urea Nitrogen 20 Creatinine 1.01 Est Glomerular > 60 Filtrat Rate mL/min Glucose Level 212 # Hemoglobin A1c 7.8 H Calcium Level 9.6 Total Bilirubin 1.8 H Direct Bilirubin 0.00 Indirect Bilirubin 1.8 H Aspartate Amino 58 H Transf (AST/SGOT) Alanine 31 Aminotransferase (AL T/SGPT) Alkaline Phosphatase 55 Total Protein 7.5 Albumin 4.4 Globulin 3.10 Albumin/Globulin 1.41 Ratio Bedside Glucose 201 221 H 218 Medications Medication Current Medications Miscellaneous Information 1 ea NOTE XX ; Start 07/26/18 at 18:30 Glucose (Glutose) 15 gm Q15M PRN PO DECREASED GLUCOSE; Start 07/26/18 at 18:30 Glucose (Glutose) 22.5 gm Q15M PRN PO DECREASED GLUCOSE; Start 07/26/18 at 18:30 Dextrose (D50w Syringe) 25 ml Q15M PRN IV DECREASED GLUCOSE; Start 07/26/18 at 18:30 Dextrose (D50w Syringe) 50 ml Q15M PRN IV DECREASED GLUCOSE; Start 07/26/18 at 18:30 Glucagon (Glucagen) 1 mg Q15M PRN IM DECREASED GLUCOSE; Start 07/26/18 at 18:30 Glucose (Glutose) 15 gm Q15M PRN BUCCAL DECREASED GLUCOSE; Start 07/26/18 at 18:30 Ondansetron HCl (Zofran Inj) 4 mg BRIDGE ORDER PRN IV NAUSEA/VOMITING Last administered on 07/27/18at 14:31; Admin Dose 4 MG; Start 07/26/18 at 20:00; Stop 07/27/18 at 19:59 Acetaminophen (Tylenol Tab) 650 mg ER BRIDGE PRN PO .MILD PAIN 1-3 OR TEMP; Start 07/26/18 at 20:00; Stop 07/27/18 at 19:59 Piperacillin Sod/ Tazobactam Sod 100 ml @ 200 mls/hr Q8 IVPB Last administered on 07/27/18 14:36; Admin Dose 200 MLS/HR; Start 07/26/18 at 22:00 Insulin Glargine (Lantus) 19 units DAILY@2000 SC Last administered on 07/26/18 23:39; Admin Dose 19 UNITS; Start 07/26/18 at 20:00 Insulin Aspart (Novolog Insulin Pen) 5 unit WITH MEALS SC Last administered on 07/27/18 12:53; Admin Dose 5 UNIT; Start 07/27/18 at 08:00 Insulin Aspart (Novolog Insulin Pen) NOVOLOG *MODERATE* ALGORITHM WITH MEALS BEDTIME SC Last administered on 07/27/18 12:53; Admin Dose 4 UNIT; Start 07/26/18 at 21:00 IV Flush (NS 3 ml) 3 ml PER PROTOCOL IV ; Start 07/26/18 at 20:00 Acetaminophen/ Hydrocodone Bitart ([place] (5/325)) 2 tab Q6H PRN PO .SEVERE PAIN 7-10 Last administered on 07/27/18 14:32; Admin Dose 2 TAB; Start 07/26/18 at 20:00 Miscellaneous Information 1 ea NOTE XX ; Start 07/26/18 at 21:30 Glucose (Glutose) 15 gm Q15M PRN PO DECREASED GLUCOSE; Start 07/26/18 at 21:30 Glucose (Glutose) 22.5 gm Q15M PRN PO DECREASED GLUCOSE; Start 07/26/18 at 21:30 Dextrose (D50w Syringe) 25 ml Q15M PRN IV DECREASED GLUCOSE; Start 07/26/18 at 21:30 Dextrose (D50w Syringe) 50 ml Q15M PRN IV DECREASED GLUCOSE; Start 07/26/18 at 21:30 Glucagon (Glucagen) 1 mg Q15M PRN IM DECREASED GLUCOSE; Start 07/26/18 at 21:30 Glucose (Glutose) 15 gm Q15M PRN BUCCAL DECREASED GLUCOSE; Start 07/26/18 at 21:30 Metoclopramide HCl (Reglan) 10 mg Q4H PRN IV VOMITTING Last administered on 07/27/18 11:39; Admin Dose 10 MG; Start 07/27/18 at 11:30 Pantoprazole (Protonix Iv) 40 mg BID@0600,1800 IV ; Start 07/28/18 at 06:00 DOMINIC JUAREZ MD Jul 27, 2018 15:31
[2018-07-27] MEDS: METOCLOPRAMIDE 10 MG INJ IV SCH ×2 (17:06→23:10)
[2018-07-27] MEDS: LACTULOSE 30ML CUP PO SCH ×4 (17:06→21:55)
[2018-07-27] MEDS: INSULIN GLARGINE [LANTus] (100 UNITS/ML) SYG SC SCH (21:54)
[2018-07-28] VITALS (13 sets, daily range): BP systolic 123–206; BP diastolic 69–126; PULSE 56–113; RESP 15–25
[2018-07-28] MEDS ORDERED: morphine 2 MG INJ IV ONE (01:12)
[2018-07-28] MEDS: ONDANSETRON 4 MG INJ IV PRN ×2 (03:01→09:17)
[2018-07-28] MEDS: PANTOPRAZOLE 40 MG INJ IV SCH ×2 (05:30→18:00)
[2018-07-28] MEDS: PIPER-TAZO 3.375 GM IV (PMX) 100 ML IVPB SCH ×3 (05:30→21:36)
[2018-07-28] MEDS: METOCLOPRAMIDE 10 MG INJ IV SCH ×4 (05:30→23:38)
[2018-07-28] MEDS ORDERED: PANTOPRAZOLE 40 MG INJ IV SCH (06:00)
[2018-07-28] MEDS: INSULIN ASPART [NOVOLOG] 3 ML PEN SC SCH ×8 (08:00→20:40)
[2018-07-28] MEDS: HYDROCODONE/APAP (5/325) TAB PO PRN (09:17)
[2018-07-28] MEDS ORDERED: HYDROmorphONE 0.5 MG/0.5 ML SYG IV PRN (10:30)
[2018-07-28] MEDS ORDERED: HALOPERIDOL 5 MG INJ IM PRN (12:30)
[2018-07-28] MEDS: LORAZEPAM 2 MG INJ IV PRN (12:41)
[2018-07-28] MEDS: SOD CHLORIDE 0.9% 1,000 ML IV SCH ×2 (12:45→20:30)
[2018-07-28] MEDS ORDERED: ONDANSETRON 4 MG INJ IV PRN (13:00)
--- NOTE | 2018-07-28 13:11 | PN ---
Date/Time of Note Date/Time of Note DATE: 07/28/18 TIME: 13:08 Assessment/Plan VTE Prophylaxis Risk score (from Ns)>0 risk: 0 SCD applied (from Ns): Yes Pharmacological prophylaxis: other Pharm contraindication: low risk/ambulating Lines/Catheters IV Catheter Type (from Nrsg): Peripheral IV Urinary Cath still in place: No Assessment/Plan Assessment/Plan 1. Nausea/vomiting, cannabinoid hyperemesis syndrome versus gastroparesis vs PUD vs other, on PPI, EGD today 2. Colitis on CT scan with leukocytosis, negative for C. diff, on zosyn, colonoscopy 3. DM, type 1, insulin 4. CAD, s/p PCI with stent placement in 2017 5. Chronic excessive Marijuana use Result Diagram: 07/27/184 07/27/184 Results 24hrs Laboratory Tests Test 07/27/18 17:35 07/27/18 21:52 07/28/18 09:19 07/28/18 13:06 Bedside Glucose 218 222 H 185 121 Subjective 24 Hr Interval Summary Free Text/Dictation nausea, abdominal pain Exam/Review of Systems Exam Vitals Vital Signs Date Temp Pulse Resp B/P (MAP) Pulse Ox O2 O2 Flow FiO2 Time Delivery Rate 07/28/18 98.1 56 18 156/84 99 01:47 (108) 07/26/18 Room Air 21:54 Intake and Output 07/27/18 07/27/18 07/28/18 1515:00 23:00 07:00 IntakeIntake Total 240 ml 720 ml 100 ml BalanceBalance 240 ml 720 ml 100 ml Constitutional: alert, oriented, well developed Head: normocephalic, atraumatic Eyes: nl conjunctiva, EOMI, nl lids, PERRL ENMT: nl external ears & nose, nl lips & teeth, nl nasal mucosa & septum Neck: supple, non-tender Respiratory: clear to auscultation, normal air movement; No congested cough, No crackles/rales, No diminished breath sounds, No intercostal retraction, No labored breathing, No respirations, No tactile fremitus, No wheezing, No other Cardiovascular: regular rate and rhythm, nl pulses; No bruits, No diastolic murmur, No edema, No gallop, No irregular rhythm, No jugular venous distention (JVD), No murmurs/extra sounds, No rub, No systolic murmur, No S3, No S4, No other Gastrointestinal: soft, nl liver, spleen, tender Musculoskeletal: nl extremities to inspection Extremities: normal pulses; No calf tenderness, No cyanosis, No clubbing, No edema, No pitting pedal ed tip, No palpable cord, No tenderness, No other Neurological: SACK SORTER II-XII intact, nl mental status, nl speech, nl strength Results Results 24hrs Laboratory Tests Test 07/27/18 17:35 07/27/18 21:52 07/28/18 09:19 07/28/18 13:06 Bedside Glucose 218 222 H 185 121 Medications Medication Current Medications Miscellaneous Information 1 ea NOTE XX ; Start 07/26/18 at 18:30 Glucose (Glutose) 15 gm Q15M PRN PO DECREASED GLUCOSE; Start 07/26/18 at 18:30 Glucose (Glutose) 22.5 gm Q15M PRN PO DECREASED GLUCOSE; Start 07/26/18 at 18:30 Dextrose (D50w Syringe) 25 ml Q15M PRN IV DECREASED GLUCOSE; Start 07/26/18 at 18:30 Dextrose (D50w Syringe) 50 ml Q15M PRN IV DECREASED GLUCOSE; Start 07/26/18 at 18:30 Glucagon (Glucagen) 1 mg Q15M PRN IM DECREASED GLUCOSE; Start 07/26/18 at 18:30 Glucose (Glutose) 15 gm Q15M PRN BUCCAL DECREASED GLUCOSE; Start 07/26/18 at 18:30 Piperacillin Sod/ Tazobactam Sod 100 ml @ 200 mls/hr Q8 IVPB Last administered on 07/28/18at 05:30; Admin Dose 200 MLS/HR; Start 07/26/18 at 22:00 Insulin Glargine (Lantus) 19 units DAILY@2000 SC Last administered on 07/27/18at 21:54; Admin Dose 19 UNITS; Start 07/26/18 at 20:00 Insulin Aspart (Novolog Insulin Pen) 5 unit WITH MEALS SC Last administered on 07/27/18at 17:49; Admin Dose 5 UNIT; Start 07/27/18 at 08:00 Insulin Aspart (Novolog Insulin Pen) NOVOLOG *MODERATE* ALGORITHM WITH MEALS BEDTIME SC Last administered on 07/28/18at 09:20; Admin Dose 4 UNIT; Start 07/26/18 at 21:00 IV Flush (NS 3 ml) 3 ml PER PROTOCOL IV ; Start 07/26/18 at 20:00 Acetaminophen/ Hydrocodone Bitart ([place] (5/325)) 2 tab Q6H PRN PO .SEVERE PAIN 7-10 Last administered on 07/27/18at 20:56; Admin Dose 2 TAB; Start 07/26/18 at 20:00 Miscellaneous Information 1 ea NOTE XX ; Start 07/26/18 at 21:30 Glucose (Glutose) 15 gm Q15M PRN PO DECREASED GLUCOSE; Start 07/26/18 at 21:30 Glucose (Glutose) 22.5 gm Q15M PRN PO DECREASED GLUCOSE; Start 07/26/18 at 21:30 Dextrose (D50w Syringe) 25 ml Q15M PRN IV DECREASED GLUCOSE; Start 07/26/18 at 21:30 Dextrose (D50w Syringe) 50 ml Q15M PRN IV DECREASED GLUCOSE; Start 07/26/18 at 21:30 Glucagon (Glucagen) 1 mg Q15M PRN IM DECREASED GLUCOSE; Start 07/26/18 at 21:30 Glucose (Glutose) 15 gm Q15M PRN BUCCAL DECREASED GLUCOSE; Start 07/26/18 at 21:30 Pantoprazole (Protonix Iv) 40 mg BID@0600,1800 IV Last administered on 07/28/18at 05:30; Admin Dose 40 MG; Start 07/28/18 at 06:00 Metoclopramide HCl (Reglan) 10 mg Q6 IV Last administered on 07/28/18at 13:02; Admin Dose 10 MG; Start 07/27/18 at 18:00 Sodium Chloride 1,000 ml @ 100 mls/hr Q10H IV Last administered on 07/28/18at 12:45; Admin Dose 100 MLS/HR; Start 07/28/18 at 10:30 Lorazepam (Ativan) 2 mg Q2H PRN IV nausea, anxiety Last administered on 07/28/18at 12:41; Admin Dose 2 MG; Start 07/28/18 at 12:30 Haloperidol (Haldol) 1 mg Q6H PRN IM agitation; Start 07/28/18 at 12:30 Ondansetron HCl (Zofran Inj) 4 mg Q4H PRN IV NAUSEA AND/OR VOMITING; Start 07/28/18 at 13:00 DOMINIC JUAREZ MD Jul 28, 2018 13:11
--- NOTE | 2018-07-28 14:55 | EN ---
Date/Time of Note Date/Time of Note DATE: 07/28/18 TIME: 14:50 Event Note Medicine Medicine Event Note Rapid response called because patient wouldn't get out of shower. Briefly, this is a 28 yo man who presents with abdominal pain and intractable vomiting, likely marijuana hyperemesis syndrome. Early this morning he got in the shower under hot water because it says it is the only thing which relieves his pain. Reports zofran and morphine both work only for a few moments before excruciating pain and vomiting recur. He says continuously running water is the only thing which helps. Unfortunately, this caused excessive condensation in the bathroom and there was concern of potential structural damage after several hours. We eventually got the patient out, he got IV ativan and haldol was ordered. 40 minutes spent caring for this patient. KWAKU ASTORGA MD Jul 28, 2018 14:54
[2018-07-28] MEDS ORDERED: DIPHENHYDRAMINE 50 MG INJ ONE (15:45)
[2018-07-28] MEDS ORDERED: ONDANSETRON 4 MG INJ ONE (15:45)
[2018-07-28] MEDS ORDERED: DEXTROSE 50% 50 ML SYRINGE ONE (16:23)
--- NOTE | 2018-07-28 17:02 | PREAC ---
Date/Time of Note Date/Time of Note DATE: 07/28/18 TIME: 17:00 Anesthesia Eval and Record Evaluation Time Pre-Procedure Interview DATE: 07/28/18 TIME: 17:00 Age 28 Sex male NPO: 8 hrs Preoperative diagnosis n/v Planned procedure EGD colonoscopy Past Medical History Past Medical History: Includes Endo: Diabetes GI: Other (colitis ) Recreational drugs: Marijuana Surgery & Anesthesia Issues No known issue Meds Anticoagulation: No Beta Erin within 24 hr: No Reason Beta Erin not given: Pt. not on B-Erin Active Scripts Insulin Regular, Human (Humulin R) 100 Units/Ml Vial, 8 U SC SLIDING SCALE AC PRN for hyperglycemia for 30 Days, VIAL 8-12 units subcutaneous per sliding scale with meals Prov:RADHA RAMON PA-C 12/15/15 Acetaminophen* (Tylophen*) 500 Mg Capsule, 2 CAP PO Q8H PRN for PAIN AND OR ELEVATED TEMP, #20 CAP Prov:ADELE VALENTIN 07/09/15 Reported Medications Insulin NPH Hum/Reg Insulin Hm (Relion Novolin 70-30 Vial) 100 Unit/1 Ml Vial, 30 UNIT SQ TIDM A, VIAL 07/26/18 Discontinued Scripts Insulin Glargine* (Lantus*) 100 Unit/Ml Soln, 30 UNIT SC QHS for 30 Days, VIAL Prov:RADHA RAMON PA-C 12/15/15 Current Medications Miscellaneous Information 1 ea NOTE XX ; Start 07/26/18 at 18:30 Glucose (Glutose) 15 gm Q15M PRN PO DECREASED GLUCOSE; Start 07/26/18 at 18:30 Glucose (Glutose) 22.5 gm Q15M PRN PO DECREASED GLUCOSE; Start 07/26/18 at 18:30 Dextrose (D50w Syringe) 25 ml Q15M PRN IV DECREASED GLUCOSE; Start 07/26/18 at 18:30 Dextrose (D50w Syringe) 50 ml Q15M PRN IV DECREASED GLUCOSE; Start 07/26/18 at 18:30 Glucagon (Glucagen) 1 mg Q15M PRN IM DECREASED GLUCOSE; Start 07/26/18 at 18:30 Glucose (Glutose) 15 gm Q15M PRN BUCCAL DECREASED GLUCOSE; Start 07/26/18 at 18:30 Piperacillin Sod/ Tazobactam Sod 100 ml @ 200 mls/hr Q8 IVPB Last administered on 07/28/18 14:18; Admin Dose 200 MLS/HR; Start 07/26/18 at 22:00 Insulin Glargine (Lantus) 19 units DAILY@2000 SC Last administered on 07/27/18 21:54; Admin Dose 19 UNITS; Start 07/26/18 at 20:00 Insulin Aspart (Novolog Insulin Pen) 5 unit WITH MEALS SC Last administered on 07/27/18 17:49; Admin Dose 5 UNIT; Start 07/27/18 at 08:00 Insulin Aspart (Novolog Insulin Pen) NOVOLOG *MODERATE* ALGORITHM WITH MEALS BEDTIME SC Last administered on 07/28/18 09:20; Admin Dose 4 UNIT; Start at 21:00 IV Flush (NS 3 ml) 3 ml PER PROTOCOL IV ; Start 07/26/18 at 20:00 Acetaminophen/ Hydrocodone Bitart ([place] (5/325)) 2 tab Q6H PRN PO .SEVERE PAIN 7-10 Last administered on 07/27/18 20:56; Admin Dose 2 TAB; Start 07/26/18 at 20:00 Miscellaneous Information 1 ea NOTE XX ; Start 07/26/18 at 21:30 Glucose (Glutose) 15 gm Q15M PRN PO DECREASED GLUCOSE; Start 07/26/18 at 21:30 Glucose (Glutose) 22.5 gm Q15M PRN PO DECREASED GLUCOSE; Start 07/26/18 at 21:30 Dextrose (D50w Syringe) 25 ml Q15M PRN IV DECREASED GLUCOSE; Start 07/26/18 at 21:30 Dextrose (D50w Syringe) 50 ml Q15M PRN IV DECREASED GLUCOSE; Start 07/26/18 at 21:30 Glucagon (Glucagen) 1 mg Q15M PRN IM DECREASED GLUCOSE; Start 07/26/18 at 21:30 Glucose (Glutose) 15 gm Q15M PRN BUCCAL DECREASED GLUCOSE; Start 07/26/18 at 21:30 Pantoprazole (Protonix Iv) 40 mg BID@0600,1800 IV Last administered on 07/28/18 05:30; Admin Dose 40 MG; Start 07/28/18 at 06:00 Metoclopramide HCl (Reglan) 10 mg Q6 IV Last administered on 2/21/19at 13:02; Admin Dose 10 MG; Start 07/27/18 at 18:00 Sodium Chloride 1,000 ml @ 100 mls/hr Q10H IV Last administered on 07/28/18at 12:45; Admin Dose 100 MLS/HR; Start 07/28/18 at 10:30 Lorazepam (Ativan) 2 mg Q2H PRN IV nausea, anxiety Last administered on 07/28/18at 12:41; Admin Dose 2 MG; Start 07/28/18 at 12:30 Haloperidol (Haldol) 1 mg Q6H PRN IM agitation; Start 07/28/18 at 12:30 Ondansetron HCl (Zofran Inj) 4 mg Q4H PRN IV NAUSEA AND/OR VOMITING; Start 07/28/18 at 13:00 Meds reviewed: Yes Allergies Coded Allergies: No Known Drug Allergy (Unverified Allergy, Mild, 07/26/18) Allergies Reviewed: Yes Labs/Studies Labs Reviewed: Reviewed by anesthesiologist Result Diagram: 07/28/18 1304 07/28/18 1304 Laboratory Tests 07/28/18 13:04 test: N/A Pre-procedure Exam Last vitals Vital Signs Date Temp Pulse Resp B/P (MAP) Pulse Ox O2 O2 Flow FiO2 Time Delivery Rate 07/28/18 101.2 113 25 206/126 95 Room Air 16:00 (152) Airway: Adequate mouth opening, Adequate thyromental dist Mallampati: Mallampati III Teeth: Normal Lung: Normal Heart: Normal ASA Physical Status ASA physical status: 3 Emergency: None Pre-operative Attestations Prior to commencing anesthesia and surgery, the patient was re-evaluated, there was verification of: *The patient's identity *The results of appropriate recent lab work and preoperative vital signs *The above evaluation not changing prior to induction *Anesthetic plan, risk benefits, alternative and complications discussed with patient/family; questions answered; patient/family understands, accepts and wishes to proceed. MARCO HUGGINS DO Jul 28, 2018 17:02
[2018-07-28] MEDS ORDERED: ETOMIDATE 20 MG INJ ONE (17:18)
[2018-07-28] MEDS ORDERED: LIDOCAINE 2% (SDV) 5 ML INJ ONE (17:18)
[2018-07-28] MEDS ORDERED: PROPOFOL 20 ML ONE (17:18)
[2018-07-28] MEDS ORDERED: MIDAZOLAM 1 MG/ML 2 ML INJ ONE (17:18)
[2018-07-28] MEDS ORDERED: LIDOCAINE 4% SOLUTION 50 ML BTL ONE (17:23)
--- NOTE | 2018-07-28 18:14 | HPN ---
Date/Time of Note Date/Time of Note DATE: 07/28/18 TIME: 18:14 Interval H&P Admission Note Pt. seen H&P reviewed: No system changes LEN ROBISON Jul 28, 2018 18:14
[2018-07-28] MEDS: INSULIN GLARGINE [LANTus] (100 UNITS/ML) SYG SC SCH (20:00)
[2018-07-28] MEDS ORDERED: INSULIN GLARGINE [LANTus] (100 UNITS/ML) SYG SC ONE (22:00)
[2018-07-29] MEDS: DEXTROSE 5%-0.45% NACL 1,000 ML IV SCH ×2 (00:29→07:44)
[2018-07-29 01:59] VITALS: BP 147/87; PULSE 72; RESP 18
[2018-07-29] MEDS: METOCLOPRAMIDE 10 MG INJ IV SCH ×3 (06:24→17:18)
[2018-07-29] MEDS: PIPER-TAZO 3.375 GM IV (PMX) 100 ML IVPB SCH (06:24)
[2018-07-29] MEDS: PANTOPRAZOLE 40 MG INJ IV SCH ×2 (06:24→17:22)
[2018-07-29 07:14] VITALS: BP 164/95; PULSE 62; RESP 18
[2018-07-29] MEDS ORDERED: POTASSIUM CHLORIDE (SR) 20 MEQ TAB PO STA (07:52)
[2018-07-29] MEDS: INSULIN ASPART [NOVOLOG] 3 ML PEN SC SCH ×7 (08:00→20:26)
[2018-07-29] MEDS: D5W-0.45 NACL + KCL 40 MEQ 1,000 ML IV SCH ×2 (09:09→23:30)
[2018-07-29] MEDS: HYDROCODONE/APAP (5/325) TAB PO PRN (12:40)
--- NOTE | 2018-07-29 13:09 | PN ---
Date/Time of Note Date/Time of Note DATE: 07/29/18 TIME: 13:05 Assessment/Plan VTE Prophylaxis Risk score (from [facility])>0 risk: 2 SCD applied (from [facility]): Yes Pharmacological prophylaxis: heparin Lines/Catheters [facility] IV Urinary Cath still in place: No Assessment/Plan Hospital Course This is a 28-year-old male with a history of type 1 diabetes and heavy marijuana use who presents with nausea and vomiting as well as severe hyperglycemia. Imaging findings are suggestive of colitis but colonoscopy was normal and symptoms have not improved with antibiotics regardless. He continues to have nausea and vomiting without an organic cause identified. I suspect this is from [facility] Imaging suggestive of colitis: - Colonoscopy was normal. No evidence of colitis. Dc antibiotics Gastritis: - PPI Nausea/vomiting; - I suspect this is from cannibinoid hyperemesis syndrome. Imporved with showers. Symptomatic care Hypokalemia: - From poor PO intake - Replete as needed Diabetes type 1 with hyperglycemia: -Basal bolus insulin - Poor control here though he says he is adherent to daily insulin regimen Marijuana use disorder: -Advised on cessation Discharge plan is pending improvement in his symptoms but he is high functioning and will not require any skilled needs at discharge Result Diagram: 07/29/18 0517 07/29/18 0517 Results 24hrs Laboratory Tests Test 07/28/18 13:06 07/28/18 16:20 07/28/18 16:58 07/28/18 20:39 Bedside Glucose 121 78 121 72 Test 07/29/18 05:17 07/29/18 08:46 White Blood Count 12.7 #H Red Blood Count 4.42 L Hemoglobin 13.4 L Hematocrit 39.1 L Mean Corpuscular 88.5 Volume Mean Corpuscular 30.3 Hemoglobin Mean Corpuscular 34.3 Hemoglobin Concent Red Cell 11.5 Distribution Width Platelet Count 203 Mean Platelet Volume 10.4 Immature 0.500 H Granulocytes % Neutrophils % 72.9 Lymphocytes % 15.8 Monocytes % 10.5 Eosinophils % 0.0 Basophils % 0.3 Nucleated Red Blood 0.0 Cells % Immature 0.060 H Granulocytes # Neutrophils # 9.3 H Lymphocytes # 2.0 Monocytes # 1.3 H Eosinophils # 0.0 Basophils # 0.0 Nucleated Red Blood 0.0 Cells # Sodium Level 139 Potassium Level 2.9 *L Chloride Level 102 Carbon Dioxide Level 31 Anion Gap 6 # Blood Urea Nitrogen 17 Creatinine 1.01 Est Glomerular > 60 Filtrat Rate mL/min Glucose Level 56 #L Calcium Level 9.1 Bedside Glucose 152 Subjective 24 Hr Interval Summary Free Text/Dictation Continues to complain of nausea and abdominal pain Only relief he gets is from beign in the shower. He has been in the shower all day and flooded the bathroom. He was asked many times to get out of the shower but he refused. branch sales manager says this is not allowable so water was turned off. Exam/Review of Systems Exam Vitals Vital Signs Date Temp Pulse Resp B/P (MAP) Pulse Ox O2 O2 Flow FiO2 Time Delivery Rate 07/29/18 98.8 62 18 164/95 98 Room Air 07:14 (118) Intake and Output 07/28/18 07/28/18 07/29/18 1515:00 23:00 07:00 IntakeIntake Total 100 ml 400 ml 630 ml BalanceBalance 100 ml 400 ml 630 ml Constitutional: alert, oriented, well developed Psych: no complaints, nl mood/affect Head: normocephalic, atraumatic Eyes: nl conjunctiva, EOMI, nl lids, nl sclera, PERRL ENMT: nl external ears & nose, nl lips & teeth, nl nasal mucosa & septum Neck: supple, non-tender Respiratory: clear to auscultation, normal air movement Cardiovascular: regular rate and rhythm, nl pulses Gastrointestinal: soft, nl liver, spleen, non-tender Musculoskeletal: nl extremities to inspection, nl gait and stance Extremities: normal pulses Neurological: LABOR AND DELIVERY NURSE II-XII intact, nl mental status, nl speech, nl strength Skin: nl turgor; No rash or lesions Lymph: nl lymph nodes Results Results 24hrs Laboratory Tests Test 07/28/18 13:06 07/28/18 16:20 07/28/18 16:58 07/28/18 20:39 Bedside Glucose 121 78 121 72 Test 07/29/18 05:17 07/29/18 08:46 White Blood Count 12.7 #H Red Blood Count 4.42 L Hemoglobin 13.4 L Hematocrit 39.1 L Mean Corpuscular 88.5 Volume Mean Corpuscular 30.3 Hemoglobin Mean Corpuscular 34.3 Hemoglobin Concent Red Cell 11.5 Distribution Width Platelet Count 203 Mean Platelet Volume 10.4 Immature 0.500 H Granulocytes % Neutrophils % 72.9 Lymphocytes % 15.8 Monocytes % 10.5 Eosinophils % 0.0 Basophils % 0.3 Nucleated Red Blood 0.0 Cells % Immature 0.060 H Granulocytes # Neutrophils # 9.3 H Lymphocytes # 2.0 Monocytes # 1.3 H Eosinophils # 0.0 Basophils # 0.0 Nucleated Red Blood 0.0 Cells # Sodium Level 139 Potassium Level 2.9 *L Chloride Level 102 Carbon Dioxide Level 31 Anion Gap 6 # Blood Urea Nitrogen 17 Creatinine 1.01 Est Glomerular > 60 Filtrat Rate mL/min Glucose Level 56 #L Calcium Level 9.1 Bedside Glucose 152 Medications Medication Current Medications Miscellaneous Information 1 ea NOTE XX ; Start 07/26/18 at 18:30 Glucose (Glutose) 15 gm Q15M PRN PO DECREASED GLUCOSE; Start 07/26/18 at 18:30 Glucose (Glutose) 22.5 gm Q15M PRN PO DECREASED GLUCOSE; Start 07/26/18 at 18:30 Dextrose (D50w Syringe) 25 ml Q15M PRN IV DECREASED GLUCOSE; Start 07/26/18 at 18:30 Dextrose (D50w Syringe) 50 ml Q15M PRN IV DECREASED GLUCOSE; Start 07/26/18 at 18:30 Glucagon (Glucagen) 1 mg Q15M PRN IM DECREASED GLUCOSE; Start 07/26/18 at 18:30 Glucose (Glutose) 15 gm Q15M PRN BUCCAL DECREASED GLUCOSE; Start 07/26/18 at 18:30 Piperacillin Sod/ Tazobactam Sod 100 ml @ 200 mls/hr Q8 IVPB Last administered on 07/29/18at 06:24; Admin Dose 200 MLS/HR; Start 07/26/18 at 22:00 Insulin Glargine (Lantus) 19 units DAILY@2000 SC Last administered on 07/27/18at 21:54; Admin Dose 19 UNITS; Start 07/26/18 at 20:00 Insulin Aspart (Novolog Insulin Pen) 5 unit WITH MEALS SC Last administered on 07/27/18at 17:49; Admin Dose 5 UNIT; Start 07/27/18 at 08:00 Insulin Aspart (Novolog Insulin Pen) NOVOLOG *MODERATE* ALGORITHM WITH MEALS BEDTIME SC Last administered on 07/28/18at 09:20; Admin Dose 4 UNIT; Start 07/26/18 at 21:00 IV Flush (NS 3 ml) 3 ml PER PROTOCOL IV ; Start 07/26/18 at 20:00 Acetaminophen/ Hydrocodone Bitart ([place] (5/325)) 2 tab Q6H PRN PO .SEVERE PAIN 7-10 Last administered on 07/29/18at 12:40; Admin Dose 2 TAB; Start 07/26/18 at 20:00 Miscellaneous Information 1 ea NOTE XX ; Start 07/26/18 at 21:30 Glucose (Glutose) 15 gm Q15M PRN PO DECREASED GLUCOSE; Start 07/26/18 at 21:30 Glucose (Glutose) 22.5 gm Q15M PRN PO DECREASED GLUCOSE; Start 07/26/18 at 21:30 Dextrose (D50w Syringe) 25 ml Q15M PRN IV DECREASED GLUCOSE; Start 07/26/18 at 21:30 Dextrose (D50w Syringe) 50 ml Q15M PRN IV DECREASED GLUCOSE; Start 07/26/18 at 21:30 Glucagon (Glucagen) 1 mg Q15M PRN IM DECREASED GLUCOSE; Start 07/26/18 at 21:30 Glucose (Glutose) 15 gm Q15M PRN BUCCAL DECREASED GLUCOSE; Start 07/26/18 at 21:30 Pantoprazole (Protonix Iv) 40 mg BID@0600,1800 IV Last administered on 07/29/18at 06:24; Admin Dose 40 MG; Start 07/28/18 at 06:00 Metoclopramide HCl (Reglan) 10 mg Q6 IV Last administered on 07/29/18at 12:40; Admin Dose 10 MG; Start 07/27/18 at 18:00 Lorazepam (Ativan) 2 mg Q2H PRN IV nausea, anxiety Last administered on 07/28/18at 12:41; Admin Dose 2 MG; Start 07/28/18 at 12:30 Haloperidol (Haldol) 1 mg Q6H PRN IM agitation; Start 07/28/18 at 12:30 Ondansetron HCl (Zofran Inj) 4 mg Q4H PRN IV NAUSEA AND/OR VOMITING Last administered on 07/29/18at 11:06; Admin Dose 4 MG; Start 07/28/18 at 13:00 Potassium Chloride/Dextrose/ Sod Cl 1,000 ml @ 75 mls/hr [id number] IV Last administered on 07/29/18at 09:09; Admin Dose 75 MLS/HR; Start 07/29/18 at 09:00 IAIN JOHNSON MD Jul 29, 2018 13:09
[2018-07-29 14:09] VITALS: BP 130/77; PULSE 104; RESP 16
--- NOTE | 2018-07-29 14:18 | PAC ---
Date/Time of Note Date/Time of Note DATE: 07/29/18 TIME: 14:17 Post-Anesthesia Notes Post-Anesthesia Note Last documented vital signs Vital Signs Date Temp Pulse Resp B/P (MAP) Pulse Ox O2 O2 Flow FiO2 Time Delivery Rate 07/28/18 99 100 20 129/75 96 Room Air 1815 Activity: WNL Respiratory function: WNL Cardiovascular function: WNL Mental status: Baseline Pain reasonably controlled: Yes Hydration appropriate: Yes Nausea/Vomiting absent: Yes MARCO HUGGINS DO Jul 29, 2018 14:18
[2018-07-29] MEDS: LORAZEPAM 2 MG INJ IV PRN (17:22)
--- NOTE | 2018-07-29 18:21 | PN ---
Date/Time of Note Date/Time of Note DATE: 07/29/18 TIME: 18:14 Assessment/Plan VTE Prophylaxis Risk score (from Ns)>0 risk: 2 SCD applied (from Nsg): Yes Pharmacological prophylaxis: heparin Lines/Catheters IV Catheter Type (from [facility]): Peripheral IV Urinary Cath still in place: No Assessment/Plan Assessment/Plan Assessment: Diarrhea- stool studies pending Post EGD/colonoscopy 07/28/2018 -Esophagitis -Gastritis -biopceis are negative for H. pylori -Intestinal metaplasia, duodenitis on the biopsy -Normal colonoscopy, biopsies are negative for colitis Colitis on imaging -Infectious vs inflammatory Abdominal pain- 2/2 to above Nausea/vomiting -Cannabinoid hyperemesis syndrome versus gastroparesis vs PUD vs other DM, type 1 Hx of PCI with stent placement in 2017 Chronic excessive Marijuana use Plan: CDIFF - negative PPI BID Start Carafate Zofran [id number] Monitor labs Continue Reglan to OTC q6hrs Advance diet as tolerated Patient seen in collaboration with Dr. Camacho Subjective: Patient is still complaining of nausea. Denies abdominal pain or vomiting. Has poor appetite but requesting fruit salad to eat. Results of EGD/colonoscopy discussed with the patient. Biopsy reported has been reviewed. Continue Protonix drip. We will add Carafate. Recommend quitting marijuana for 1 month at least. PHYSICAL EXAMINATION: GENERAL: Well developed, well nourished, alert & oriented x 3, in no acute distress SKIN: No lesions, no stigmata chronic liver disease, no evidence of bleeding diathesis LYMPHATIC: No palpable lymphadenopathy. HEAD: Normocephalic, atraumatic, no tenderness. EYES: Pupils equal reactive to light and accommodation, full extraocular movements, sclera clear, non-icteric, no discharge. EARS/NOSE AND THROAT: Ears normal, nose normal, oropharynx normal, oral membranes well hydrated without lesions. NECK: Supple, no masses, thyroid normal, JVP within normal limits, carotids normal without bruits. CHEST: Inspection within normal limits. CARDIOVASCULAR: Heart: Regular rate and rhythm, no murmurs, gallops or rubs. Peripheral pulses present within normal limits, no cyanosis, clubbing or edemas. No pulsatile abdominal mass RESPIRATORY: Lungs clear to auscultation and percussion, no wheezing, no rubs GASTROINTESTINAL AND LIVER: Abdomen: Soft, non tenderness, non-distended, no hernias, no masses, no organomegaly, no ascites, no guarding, no rebound tenderness, normoactive bowel sounds. Rectal: Deferred. GENITOURINARY: Male genitalia within normal limits. EXTREMITIES: No cyanosis, clubbing or edema. Result Diagram: 07/29/18 0517 07/29/18 1639 Results 24hrs Laboratory Tests Test 07/28/18 20:39 07/29/18 05:17 07/29/18 08:46 07/29/18 13:06 Bedside Glucose 72 152 209 White Blood Count 12.7 #H Red Blood Count 4.42 L Hemoglobin 13.4 L Hematocrit 39.1 L Mean Corpuscular 88.5 Volume Mean Corpuscular 30.3 Hemoglobin Mean Corpuscular 34.3 Hemoglobin Concent Red Cell 11.5 Distribution Width Platelet Count 203 Mean Platelet Volume 10.4 Immature 0.500 H Granulocytes % Neutrophils % 72.9 Lymphocytes % 15.8 Monocytes % 10.5 Eosinophils % 0.0 Basophils % 0.3 Nucleated Red Blood 0.0 Cells % Immature 0.060 H Granulocytes # Neutrophils # 9.3 H Lymphocytes # 2.0 Monocytes # 1.3 H Eosinophils # 0.0 Basophils # 0.0 Nucleated Red Blood 0.0 Cells # Sodium Level 139 Potassium Level 2.9 *L Chloride Level 102 Carbon Dioxide Level 31 Anion Gap 6 # Blood Urea Nitrogen 17 Creatinine 1.01 Est Glomerular > 60 Filtrat Rate mL/min Glucose Level 56 #L Calcium Level 9.1 Test 07/29/18 16:39 07/29/18 17:28 Sodium Level 134 L Potassium Level 3.3 L Chloride Level 100 Carbon Dioxide Level 27 Anion Gap 7 Blood Urea Nitrogen 14 Creatinine 0.93 Est Glomerular > 60 Filtrat Rate mL/min Glucose Level 139 # Calcium Level 9.2 Bedside Glucose 163 CC: ISACC CAMACHO MD ; Exam/Review of Systems Exam Vitals Vital Signs Date Temp Pulse Resp B/P (MAP) Pulse Ox O2 O2 Flow FiO2 Time Delivery Rate 07/29/18 100.2 104 16 130/77 96 Room Air 14:09 (94) Intake and Output 07/28/18 07/28/18 07/29/18 1515:00 23:00 07:00 IntakeIntake Total 100 ml 400 ml 630 ml BalanceBalance 100 ml 400 ml 630 ml Results Results 24hrs Laboratory Tests Test 07/28/18 20:39 07/29/18 05:17 07/29/18 08:46 07/29/18 13:06 Bedside Glucose 72 152 209 White Blood Count 12.7 #H Red Blood Count 4.42 L Hemoglobin 13.4 L Hematocrit 39.1 L Mean Corpuscular 88.5 Volume Mean Corpuscular 30.3 Hemoglobin Mean Corpuscular 34.3 Hemoglobin Concent Red Cell 11.5 Distribution Width Platelet Count 203 Mean Platelet Volume 10.4 Immature 0.500 H Granulocytes % Neutrophils % 72.9 Lymphocytes % 15.8 Monocytes % 10.5 Eosinophils % 0.0 Basophils % 0.3 Nucleated Red Blood 0.0 Cells % Immature 0.060 H Granulocytes # Neutrophils # 9.3 H Lymphocytes # 2.0 Monocytes # 1.3 H Eosinophils # 0.0 Basophils # 0.0 Nucleated Red Blood 0.0 Cells # Sodium Level 139 Potassium Level 2.9 *L Chloride Level 102 Carbon Dioxide Level 31 Anion Gap 6 # Blood Urea Nitrogen 17 Creatinine 1.01 Est Glomerular > 60 Filtrat Rate mL/min Glucose Level 56 #L Calcium Level 9.1 Test 07/29/18 16:39 07/29/18 17:28 Sodium Level 134 L Potassium Level 3.3 L Chloride Level 100 Carbon Dioxide Level 27 Anion Gap 7 Blood Urea Nitrogen 14 Creatinine 0.93 Est Glomerular > 60 Filtrat Rate mL/min Glucose Level 139 # Calcium Level 9.2 Bedside Glucose 163 Medications Medication Current Medications Miscellaneous Information 1 ea NOTE XX ; Start 07/26/18 at 18:30 Glucose (Glutose) 15 gm Q15M PRN PO DECREASED GLUCOSE; Start 07/26/18 at 18:30 Glucose (Glutose) 22.5 gm Q15M PRN PO DECREASED GLUCOSE; Start 07/26/18 at 18:30 Dextrose (D50w Syringe) 25 ml Q15M PRN IV DECREASED GLUCOSE; Start 07/26/18 at 18:30 Dextrose (D50w Syringe) 50 ml Q15M PRN IV DECREASED GLUCOSE; Start 07/26/18 at 18:30 Glucagon (Glucagen) 1 mg Q15M PRN IM DECREASED GLUCOSE; Start 07/26/18 at 18:30 Glucose (Glutose) 15 gm Q15M PRN BUCCAL DECREASED GLUCOSE; Start 07/26/18 at 18:30 Insulin Aspart (Novolog Insulin Pen) 5 unit WITH MEALS SC Last administered on 07/29/18 13:09; Admin Dose 5 UNIT; Start 07/27/18 at 08:00 Insulin Aspart (Novolog Insulin Pen) NOVOLOG *MODERATE* ALGORITHM WITH MEALS BEDTIME SC Last administered on 07/29/18 13:10; Admin Dose 4 UNIT; Start 07/26/18 at 21:00 IV Flush (NS 3 ml) 3 ml PER PROTOCOL IV ; Start 07/26/18 at 20:00 Acetaminophen/ Hydrocodone Bitart ([place] (5/325)) 2 tab Q6H PRN PO .SEVERE PAIN 7-10 Last administered on 07/29/18 12:40; Admin Dose 2 TAB; Start 07/26/18 at 20:00 Miscellaneous Information 1 ea NOTE XX ; Start 07/26/18 at 21:30 Glucose (Glutose) 15 gm Q15M PRN PO DECREASED GLUCOSE; Start 07/26/18 at 21:30 Glucose (Glutose) 22.5 gm Q15M PRN PO DECREASED GLUCOSE; Start 07/26/18 at 21:30 Dextrose (D50w Syringe) 25 ml Q15M PRN IV DECREASED GLUCOSE; Start 07/26/18 at 21:30 Dextrose (D50w Syringe) 50 ml Q15M PRN IV DECREASED GLUCOSE; Start 07/26/18 at 21:30 Glucagon (Glucagen) 1 mg Q15M PRN IM DECREASED GLUCOSE; Start 07/26/18 at 21:30 Glucose (Glutose) 15 gm Q15M PRN BUCCAL DECREASED GLUCOSE; Start 07/26/18 at 21:30 Pantoprazole (Protonix Iv) 40 mg BID@0600,1800 IV Last administered on 07/29/18 17:22; Admin Dose 40 MG; Start 07/28/18 at 06:00; Stop 07/29/18 at 23:00 Metoclopramide HCl (Reglan) 10 mg Q6 IV Last administered on 07/29/18 17:18; Admin Dose 10 MG; Start 07/27/18 at 18:00 Lorazepam (Ativan) 2 mg Q2H PRN IV nausea, anxiety Last administered on 07/29/18 17:22; Admin Dose 2 MG; Start 07/28/18 at 12:30 Haloperidol (Haldol) 1 mg Q6H PRN IM agitation; Start 07/28/18 at 12:30 Ondansetron HCl (Zofran Inj) 4 mg Q4H PRN IV NAUSEA AND/OR VOMITING Last administered on 07/29/18at 11:06; Admin Dose 4 MG; Start 07/28/18 at 13:00 Potassium Chloride/Dextrose/ Sod Cl 1,000 ml @ 75 mls/hr [id number] IV Last administered on 07/29/18at 09:09; Admin Dose 75 MLS/HR; Start 07/29/18 at 09:00 Insulin Glargine (Lantus) 10 units DAILY@2000 SC ; Start 07/29/18 at 20:00 Pantoprazole (Protonix Tab) 40 mg BID@0600,1800 PO ; Start 07/30/18 at 06:00 Sucralfate (Carafate Susp) 1 gm QID GTB ; Start 07/29/18 at 18:30; Status MICHI MOSQUEDA 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
[2018-07-29] MEDS: SUCRALFATE (100 MG/ML) 10ML CUP GTB SCH ×2 (18:30→21:00)
[2018-07-29] MEDS ORDERED: INSULIN GLARGINE [LANTus] (100 UNITS/ML) SYG SC SCH (20:00)
[2018-07-29 20:06] VITALS: BP 128/78; PULSE 89; RESP 16
[2018-07-29] MEDS: ONDANSETRON 4 MG INJ IV SCH (21:21)
[2018-07-30] MEDS ORDERED: ONDANSETRON 4 MG INJ IV SCH
[2018-07-30] MEDS: METOCLOPRAMIDE 10 MG INJ IV SCH ×3 (00:07→12:14)
[2018-07-30] MEDS: LORAZEPAM 2 MG INJ IV PRN (00:12)
[2018-07-30] MEDS: ONDANSETRON 4 MG INJ IV SCH ×2 (02:56→08:17)
[2018-07-30 02:59] VITALS: BP 134/83; PULSE 90; RESP 18
[2018-07-30] MEDS ORDERED: PANTOPRAZOLE (EC) 40 MG TAB PO SCH (06:00)
[2018-07-30] MEDS: SUCRALFATE (100 MG/ML) 10ML CUP GTB SCH ×2 (08:16→12:14)
[2018-07-30] MEDS: INSULIN ASPART [NOVOLOG] 3 ML PEN SC SCH ×4 (08:23→12:17)
--- NOTE | 2018-07-30 11:20 | PN ---
Date/Time of Note Date/Time of Note DATE: 07/30/18 TIME: 11:08 Assessment/Plan VTE Prophylaxis Risk score (from Nsg)>0 risk: 0 SCD applied (from Nsg): No SCD contraindicated: low risk/ambulating Pharmacological prophylaxis: heparin Lines/Catheters IV Catheter Type (from Nrsg): Peripheral IV Urinary Cath still in place: No Assessment/Plan Assessment/Plan Assessment: Diarrhea- stool studies pending Post EGD/colonoscopy 07/28/2018 -Esophagitis -Gastritis -biopceis are negative for H. pylori -Intestinal metaplasia, duodenitis on the biopsy -Normal colonoscopy, biopsies are negative for colitis Colitis on imaging Hyperbilirubinemia - indirect Bili- Likely d/t Gilbert's syndrome Elevated AST - monitor Abdominal pain- resolved Nausea/vomiting - improved DM, type 1 Hx of PCI with stent placement in 2017 Chronic excessive Marijuana use CDIFF - negative Plan: Stool studies pending Start Regular diet PPI BID Start Carafate Zofran [id number] Monitor labs Continue Reglan to ATC q6hrs Advance diet as tolerated Patient seen in collaboration with Dr. Camacho Subjective: Patient states his nausea has improved since yesterday. Denies abdominal pain o r vomiting. Had one loose BM yesterday. Has poor appetite but requesting fruit salad to eat. Continue Protonix and Carafate. Will start regular diet. If not tolerated can downgrade to full liquid. Recommend quitting marijuana for 1 month at least. PHYSICAL EXAMINATION: GENERAL: Well developed, well nourished, alert & oriented x 3, in no acute distress SKIN: No lesions, no stigmata chronic liver disease, no evidence of bleeding diathesis LYMPHATIC: No palpable lymphadenopathy. HEAD: Normocephalic, atraumatic, no tenderness. EYES: Pupils equal reactive to light and accommodation, full extraocular movements, sclera clear, non-icteric, no discharge. EARS/NOSE AND THROAT: Ears normal, nose normal, oropharynx normal, oral membranes well hydrated without lesions. NECK: Supple, no masses, thyroid normal, JVP within normal limits, carotids normal without bruits. CHEST: Inspection within normal limits. CARDIOVASCULAR: Heart: Regular rate and rhythm, no murmurs, gallops or rubs. Peripheral pulses present within normal limits, no cyanosis, clubbing or edemas. No pulsatile abdominal mass RESPIRATORY: Lungs clear to auscultation and percussion, no wheezing, no rubs GASTROINTESTINAL AND LIVER: Abdomen: Soft, non tenderness, non-distended, no hernias, no masses, no organomegaly, no ascites, no guarding, no rebound tenderness, normoactive bowel sounds. Rectal: Deferred. GENITOURINARY: Male genitalia within normal limits. EXTREMITIES: No cyanosis, clubbing or edema. Result Diagram: 07/30/18 0511 07/30/18 0511 Results 24hrs Laboratory Tests Test 07/29/18 13:06 07/29/18 16:39 07/29/18 17:28 07/29/18 20:24 Bedside Glucose 209 163 182 Sodium Level 134 L Potassium Level 3.3 L Chloride Level 100 Carbon Dioxide Level 27 Anion Gap 7 Blood Urea Nitrogen 14 Creatinine 0.93 Est Glomerular > 60 Filtrat Rate mL/min Glucose Level 139 # Calcium Level 9.2 Test 07/30/18 02:58 07/30/18 05:11 07/30/18 08:19 Bedside Glucose 201 208 White Blood Count 8.7 # Red Blood Count 4.37 L Hemoglobin 13.3 L Hematocrit 37.8 L Mean Corpuscular 86.5 Volume Mean Corpuscular 30.4 Hemoglobin Mean Corpuscular 35.2 Hemoglobin Concent Red Cell 11.0 L Distribution Width Platelet Count 200 Mean Platelet Volume 10.6 H Immature 0.200 Granulocytes % Neutrophils % 62.4 Lymphocytes % 24.6 Monocytes % 12.0 H Eosinophils % 0.2 Basophils % 0.6 Nucleated Red Blood 0.0 Cells % Immature 0.020 Granulocytes # Neutrophils # 5.5 Lymphocytes # 2.2 Monocytes # 1.1 H Eosinophils # 0.0 Basophils # 0.1 Nucleated Red Blood 0.0 Cells # Sodium Level 134 L Potassium Level 3.6 Chloride Level 99 Carbon Dioxide Level 26 Anion Gap 9 Blood Urea Nitrogen 13 Creatinine 0.96 Est Glomerular > 60 Filtrat Rate mL/min Glucose Level 236 H Calcium Level 8.9 Total Bilirubin 3.0 H Direct Bilirubin 0.00 Indirect Bilirubin 3.0 H Aspartate Amino 59 H Transf (AST/SGOT) Alanine 50 Aminotransferase (AL T/SGPT) Alkaline Phosphatase 61 Total Protein 6.8 Albumin 3.7 Globulin 3.10 Albumin/Globulin 1.19 Ratio CC: ISACC CAMACHO MD ; Exam/Review of Systems Exam Vitals Vital Signs Date Temp Pulse Resp B/P (MAP) Pulse Ox O2 O2 Flow FiO2 Time Delivery Rate 07/30/18 98.4 90 18 134/83 97 02:59 (100) 07/29/18 Room Air 14:09 Intake and Output 07/29/18 07/29/18 07/30/18 1414:59 22:59 06:59 IntakeIntake Total 440 ml 860 ml 1500 ml BalanceBalance 440 ml 860 ml 1500 ml Results Results 24hrs Laboratory Tests Test 07/29/18 13:06 07/29/18 16:39 07/29/18 17:28 07/29/18 20:24 Bedside Glucose 209 163 182 Sodium Level 134 L Potassium Level 3.3 L Chloride Level 100 Carbon Dioxide Level 27 Anion Gap 7 Blood Urea Nitrogen 14 Creatinine 0.93 Est Glomerular > 60 Filtrat Rate mL/min Glucose Level 139 # Calcium Level 9.2 Test 07/30/18 02:58 07/30/18 05:11 07/30/18 08:19 Bedside Glucose 201 208 White Blood Count 8.7 # Red Blood Count 4.37 L Hemoglobin 13.3 L Hematocrit 37.8 L Mean Corpuscular 86.5 Volume Mean Corpuscular 30.4 Hemoglobin Mean Corpuscular 35.2 Hemoglobin Concent Red Cell 11.0 L Distribution Width Platelet Count 200 Mean Platelet Volume 10.6 H Immature 0.200 Granulocytes % Neutrophils % 62.4 Lymphocytes % 24.6 Monocytes % 12.0 H Eosinophils % 0.2 Basophils % 0.6 Nucleated Red Blood 0.0 Cells % Immature 0.020 Granulocytes # Neutrophils # 5.5 Lymphocytes # 2.2 Monocytes # 1.1 H Eosinophils # 0.0 Basophils # 0.1 Nucleated Red Blood 0.0 Cells # Sodium Level 134 L Potassium Level 3.6 Chloride Level 99 Carbon Dioxide Level 26 Anion Gap 9 Blood Urea Nitrogen 13 Creatinine 0.96 Est Glomerular > 60 Filtrat Rate mL/min Glucose Level 236 H Calcium Level 8.9 Total Bilirubin 3.0 H Direct Bilirubin 0.00 Indirect Bilirubin 3.0 H Aspartate Amino 59 H Transf (AST/SGOT) Alanine 50 Aminotransferase (AL T/SGPT) Alkaline Phosphatase 61 Total Protein 6.8 Albumin 3.7 Globulin 3.10 Albumin/Globulin 1.19 Ratio Medications Medication Current Medications Miscellaneous Information 1 ea NOTE XX ; Start 07/26/18 at 18:30 Glucose (Glutose) 15 gm Q15M PRN PO DECREASED GLUCOSE; Start 07/26/18 at 18:30 Glucose (Glutose) 22.5 gm Q15M PRN PO DECREASED GLUCOSE; Start 07/26/18 at 18:30 Dextrose (D50w Syringe) 25 ml Q15M PRN IV DECREASED GLUCOSE; Start 07/26/18 at 18:30 Dextrose (D50w Syringe) 50 ml Q15M PRN IV DECREASED GLUCOSE; Start 07/26/18 at 18:30 Glucagon (Glucagen) 1 mg Q15M PRN IM DECREASED GLUCOSE; Start 07/26/18 at 18:30 Glucose (Glutose) 15 gm Q15M PRN BUCCAL DECREASED GLUCOSE; Start 07/26/18 at 18:30 Insulin Aspart (Novolog Insulin Pen) 5 unit WITH MEALS SC Last administered on 07/30/18at 08:23; Admin Dose 5 UNIT; Start 07/27/18 at 08:00 Insulin Aspart (Novolog Insulin Pen) NOVOLOG *MODERATE* ALGORITHM WITH MEALS BEDTIME SC Last administered on 07/30/18at 08:24; Admin Dose 4 UNIT; Start 07/26/18 at 21:00 IV Flush (NS 3 ml) 3 ml PER PROTOCOL IV ; Start 07/26/18 at 20:00 Acetaminophen/ Hydrocodone Bitart ([place] (5/325)) 2 tab Q6H PRN PO .SEVERE PAIN 7-10 Last administered on 07/29/18at 12:40; Admin Dose 2 TAB; Start 07/26/18 at 20:00 Miscellaneous Information 1 ea NOTE XX ; Start 07/26/18 at 21:30 Glucose (Glutose) 15 gm Q15M PRN PO DECREASED GLUCOSE; Start 07/26/18 at 21:30 Glucose (Glutose) 22.5 gm Q15M PRN PO DECREASED GLUCOSE; Start 07/26/18 at 21:30 Dextrose (D50w Syringe) 25 ml Q15M PRN IV DECREASED GLUCOSE; Start 07/26/18 at 21:30 Dextrose (D50w Syringe) 50 ml Q15M PRN IV DECREASED GLUCOSE; Start 07/26/18 at 21:30 Glucagon (Glucagen) 1 mg Q15M PRN IM DECREASED GLUCOSE; Start 07/26/18 at 21:30 Glucose (Glutose) 15 gm Q15M PRN BUCCAL DECREASED GLUCOSE; Start 07/26/18 at 21:30 Metoclopramide HCl (Reglan) 10 mg Q6 IV Last administered on 07/30/18at 06:00; Admin Dose 10 MG; Start 07/27/18 at 18:00 Lorazepam (Ativan) 2 mg Q2H PRN IV nausea, anxiety Last administered on 07/30/18at 00:12; Admin Dose 2 MG; Start 07/28/18 at 12:30 Haloperidol (Haldol) 1 mg Q6H PRN IM agitation; Start 07/28/18 at 12:30 Potassium Chloride/Dextrose/ Sod Cl 1,000 ml @ 75 mls/hr [id number] IV Last administered on 07/29/18at 23:30; Admin Dose 75 MLS/HR; Start 07/29/18 at 09:00 Insulin Glargine (Lantus) 10 units DAILY@2000 SC Last administered on 07/29/18at 20:26; Admin Dose 10 UNITS; Start 07/29/18 at 20:00 Pantoprazole (Protonix Tab) 40 mg BID@0600,1800 PO Last administered on 07/30/18at 05:59; Admin Dose 40 MG; Start 07/30/18 at 06:00 Sucralfate (Carafate Susp) 1 gm QID GTB Last administered on 07/30/18at 08:16; Admin Dose 1 GM; Start 07/29/18 at 18:30 Ondansetron HCl (Zofran Inj) 4 mg Q6H IV Last administered on 07/30/18 08:17; Admin Dose 4 MG; Start 07/29/18 at 21:00 MICHI VALENCIA NP Jul 30, 2018 11:19
[2018-07-30] MEDS: D5W-0.45 NACL + KCL 40 MEQ 1,000 ML IV SCH ×2 (11:40→12:22)
--- NOTE | 2018-07-30 12:36 | PDOCDIS ---
Discharge Instructions DIAGNOSIS Discharge Diagnosis Cannibinoid hyperemesis syndrome CONDITION [id number] Patient Condition: [id number] Stable HOME CARE INSTRUCTIONS: [id number] Diet Instructions: [id number] FOLLOW UP/APPOINTMENTS Follow-up Plan Continue insulin as prescribed by your doctor Avoid using marijuana IAIN JOHNSON MD Jul 30, 2018 12:36
--- NOTE | 2018-07-30 14:01 | DS ---
Date/Time of Note Date/Time of Note DATE: 07/30/18 TIME: 13:41 Discharge Summary Admission/Discharge Info Admit Date/Time Jul 26, 2018 at 19:50 Discharge Date/Time Discharge Diagnosis Cannibinoid hyperemesis syndrome Patient Condition: Stable Hx of Present Illness This is a 28-year-old male with a history of type 1 diabetes with poor control who comes in with nausea vomiting abdominal pain Patient provides somewhat of an odd history. He says that for the past couple days when he brushes teeth the toothpaste makes him nauseous and then he has disabling nausea with abdominal pain. he says this is happened just since yesterday and seems to attribute all symptoms to toothpaste. Yesterday it was tolerable but today lasted for hours and symptoms became intolerable so he came to the hospital he also reports watery diarrhea just since today. Of note he is a chronic marijuana user and does seem to find some relief with hot showers I raise the question of cannabinoid hyperemesis syndrome and he seemed to think that this fit his symptoms fairly clearly.. That said however in the ED he had a CAT scan which showed colitis. He denies any fevers denies any history of colitis denies any blood or mucus in his stool. His diarrhea today has just been watery Hospital Course This is a 28-year-old male with a history of type 1 diabetes and heavy marijuana use who presents with nausea and vomiting as well as severe hyperglycemia. Imaging findings were suggestive of colitis and he was started on empiric antibiotics. He underwent EGD and colonoscopy. Colonoscopy was normal and symptoms did not improve with antibiotics regardless so they were stopped. He was treated with PPI and antiemetics. He continued to have nausea and vomiting without an organic cause identified. The only relief he seemed to get is from hot showers. He took hours long showers and flooded the bathroom requiring the nursing staff to turn off the water to his room. I suspect this is from [facility] as he also believes. Symptoms improved and he was tolerating PO so discharged to self care. He was advised to avoid marijuana and to return of symptoms recur. Home Meds Active Scripts Insulin Regular, Human (Humulin R) 100 Units/Ml Vial, 8 U SC SLIDING SCALE AC PRN for hyperglycemia for 30 Days, VIAL 8-12 units subcutaneous per sliding scale with meals Prov:RADHA RAMON PA-C 12/15/15 Acetaminophen* (Tylophen*) 500 Mg Capsule, 2 CAP PO Q8H PRN for PAIN AND OR E LEVATED TEMP, #20 CAP Prov:ADELE VALENTIN 07/09/15 Reported Medications Insulin NPH Hum/Reg Insulin Hm (Relion Novolin 70-30 Vial) 100 Unit/1 Ml Vial, 30 UNIT SQ TIDM A, VIAL 07/26/18 Discontinued Scripts Insulin Glargine* (Lantus*) 100 Unit/Ml Soln, 30 UNIT SC QHS for 30 Days, VIAL Prov:RADHA RAMON PA-C 12/15/15 Follow-up Plan Continue insulin as prescribed by your doctor Avoid using marijuana Primary Care Provider Care Physician No Primary Pending Labs Laboratory Tests Test 07/29/18 16:39 07/29/18 17:28 07/29/18 20:24 07/30/18 02:58 Sodium Level 134 mmol/L (135-144 ) Potassium 3.3 Level mmol/L (3.5-5.1 ) Chloride Level 100 mmol/L (97-110) Carbon Dioxide 27 Level mmol/L (21-31) Anion Gap 7 (5-13) Blood Urea 14 mg/dl (7-20) Nitrogen Creatinine 0.93 mg/dl (0.61-1.2 4) Est Glomerular > 60 Filtrat mL/min (>60) Rate mL/min Glucose Level 139 mg/dl (70-220) Calcium Level 9.2 mg/dl (8.4-10.2 ) Bedside 163 182 201 Glucose mg/dL (70-220) mg/dL (70-220) mg/dL (70-220) Test 07/30/18 05:11 07/30/18 08:19 07/30/18 12:12 White Blood 8.7 Count 10^3/ul (4.8-10 .8) Red Blood 4.37 Count 10^6/ul (4.70-6 .10) Hemoglobin 13.3 g/dl (14.0-18.0 ) Hematocrit 37.8 % (42.0-52.0) Mean 86.5 Corpuscular fl (82.0-101.0) Volume Mean 30.4 Corpuscular pg (29.0-33.0) Hemoglobin Mean 35.2 Corpuscular g/dl (32.0-37.0 Hemoglobin Conc ) ent Red Cell 11.0 Distribution % (11.5-14.5) Width Platelet Count 200 10^3/UL (140-41 5) Mean Platelet 10.6 Volume fl (7.4-10.4) Immature 0.200 Granulocytes % % (0.001-0.429) Neutrophils % 62.4 % (39.0-77.0) Lymphocytes % 24.6 % (15.0-51.0) Monocytes % 12.0 % (0.0-11.0) Eosinophils % 0.2 % (0.0-7.0) Basophils % 0.6 % (0.0-2.0) Nucleated Red 0.0 Blood Cells % /100WBC (0.0-0. 0) Immature 0.020 Granulocytes # 10^3/ul (0.0-0. 031) Neutrophils # 5.5 10^3/ul (1.6-7. 5) Lymphocytes # 2.2 10^3/ul (0.8-2. 9) Monocytes # 1.1 10^3/ul (0.3-0. 9) Eosinophils # 0.0 10^3/ul (0.0-0. 5) Basophils # 0.1 10^3/ul (0.0-0. 1) Nucleated Red 0.0 Blood Cells # 10^3/ul (0.0-0. 0) Sodium Level 134 mmol/L (135-144 ) Potassium 3.6 Level mmol/L (3.5-5.1 ) Chloride Level 99 mmol/L (97-110) Carbon Dioxide 26 Level mmol/L (21-31) Anion Gap 9 (5-13) Blood Urea 13 mg/dl (7-20) Nitrogen Creatinine 0.96 mg/dl (0.61-1.2 4) Est Glomerular > 60 Filtrat mL/min (>60) Rate mL/min Glucose Level 236 mg/dl (70-220) Calcium Level 8.9 mg/dl (8.4-10.2 ) Total 3.0 Bilirubin mg/dl (0.2-1.3) Direct 0.00 Bilirubin mg/dl (0.00-0.2 0) Indirect 3.0 Bilirubin mg/dl (0-1.1) Aspartate Amino 59 IU/L (15-46) Transf (AST/SGO T) Alanine 50 IU/L (13-69) Aminotransferas e (ALT/SGPT) Alkaline 61 Phosphatase IU/L (42-121) Total Protein 6.8 g/dl (6.1-8.1) Albumin 3.7 g/dl (3.3-4.9) Globulin 3.10 g/dl (1.3-3.2) Albumin/Globuli 1.19 n Ratio Bedside 208 278 Glucose mg/dL (70-220) mg/dL (70-220) IAIN JOHNSON MD Jul 30, 2018 14:01
== END 2018-07-30 13:45 | disposition home or self-care (01) | DRG 897 ==
LOC: E/R 16:06 → 2NE 19:50
PROVIDERS: ADMIT Internal Medicine; ATTEND Internal Medicine
PROC: 0DBG8ZX Excision of Left Large Intestine, Via Natural or Artificial Opening Endoscopic, Diagnostic (ICD-10-PCS; 2018-07-28)
PROC: 0DBF8ZX Excision of Right Large Intestine, Via Natural or Artificial Opening Endoscopic, Diagnostic (ICD-10-PCS; 2018-07-28)
PROC: 0DB58ZX Excision of Esophagus, Via Natural or Artificial Opening Endoscopic, Diagnostic (ICD-10-PCS; principal; 2018-07-28 16:30)
PROC: 0DB68ZX Excision of Stomach, Via Natural or Artificial Opening Endoscopic, Diagnostic (ICD-10-PCS; 2018-07-28 16:30)
DX: F12.20 Cannabis dependence, uncomplicated (principal); T40.7X5A Adverse effect of cannabis (derivatives), initial encounter; Y92.019 Unspecified place in single-family (private) house as the place of occurrence of the external cause; K29.70 Gastritis, unspecified, without bleeding; E10.65 Type 1 diabetes mellitus with hyperglycemia; Z79.4 Long term (current) use of insulin; K52.9 Noninfective gastroenteritis and colitis, unspecified; Z95.5 Presence of coronary angioplasty implant and graft; I25.10 Atherosclerotic heart disease of native coronary artery without angina pectoris; R11.2 Nausea with vomiting, unspecified; K44.9 Diaphragmatic hernia without obstruction or gangrene; E87.6 Hypokalemia
CPT/HCPCS: 36415; 74176; 80048; 80053; 82010; 82962; 83036; 83735; 84100; 85025; 85651; 86140; 87040; 87075; 88305; 88312; 88313; 96361; 96372; 96374; 96375; 96376; C9113; J1170; J1200; J1335; J1815; J2060; J2250; J2270; J2405; J2543; J2765; J3480; J7030; J7042

== ENCOUNTER 2018-08-25 19:12 | Emergency (ER) | payer SELFPAY ==
[~2018-08-25] VITALS: Ht 167.6 cm; Wt 67.0 kg
[~2018-08-25 19:12] MED LIST changes: +HUM100VI13 SQ; -LANT3I SC
[2018-08-25 19:59] VITALS: BP 137/84; PULSE 79; RESP 18; Ht 167.6 cm; Wt 67.0 kg
[2018-08-26] MEDS ORDERED: DIPHTH/TET/ACEL PERTUSS (ADULT) 0.5 ML VIAL IM* ONE
[2018-08-26] MEDS ORDERED: LIDOCAINE 1% (MDV) 20 ML INJ SC ONE
[2018-08-26] MEDS ORDERED: CEPH-443 PO (01:19)
[2018-08-26] MEDS ORDERED: SULF1TAB31 PO (01:19)
--- NOTE | 2018-08-26 01:43 | ERD ---
ER Documentation Chief Complaint Chief Complaint STATES PAINFUL, RED AND SWOLLEN BUMP TO LT ARMPIT X3 DAYS HPI Patient is a 28-year-old male with a past medical history of DM type I, insulin- dependent, presents the ER for concerns of painful lump in his left armpit times 3 days. Patient states that the lesion is erythematous, tender and slightly swollen. Patient states there is a white spot in the center of the lesion. Patient denies any fevers or chills. Patient denies any nausea, vomiting, bowel pain or diarrhea. Of note patient does have 2 small similar lesions on his bilateral flanks. Patient denies any chest pain or shortness of breath. Patient denies any IV drug use. Patient does not recall his last tetanus vaccination. Patient states his BS this morning was 120. ROS All systems reviewed and are negative except as per history of present illness. Medications Home Meds Active Scripts Cephalexin* (Keflex*) 500 Mg Capsule, 500 MG PO TID for 7 Days, CAP Prov:MARIA D ALEJANDRA PA-C 08/26/18 Sulfamethoxazole/Trimethoprim* (Bactrim Ds* Tablet) 1 Each Tablet, 1 TAB PO BID, #14 TAB Prov:MARIA D ALEJANDRA PA-C 08/26/18 Insulin Regular, Human (Humulin R) 100 Units/Ml Vial, 8 U SC SLIDING SCALE AC PRN for hyperglycemia for 30 Days, VIAL 8-12 units subcutaneous per sliding scale with meals Prov:RADHA RAMON PA-C 12/15/15 Acetaminophen* (Tylophen*) 500 Mg Capsule, 2 CAP PO Q8H PRN for PAIN AND OR ELEVATED TEMP, #20 CAP Prov:ADELE VALENTIN 07/09/15 Reported Medications Insulin NPH Hum/Reg Insulin Hm (Relion Novolin 70-30 Vial) 100 Unit/1 Ml Vial, 30 UNIT SQ TIDM A, VIAL 07/26/18 Allergies Allergies: Coded Allergies: No Known Drug Allergy (Unverified Allergy, Mild, 07/26/18) PMhx/Soc Medical and Surgical Hx: pt denies Medical Hx, pt denies Surgical Hx History of Surgery: No Anesthesia Reaction: No Hx Neurological Disorder: No Hx Respiratory Disorders: No Hx Cardiac Disorders: No Hx Psychiatric Problems: No Hx Miscellaneous Medical Probl: Yes (HEAVY USE OF MARIJUANA, DM) Hx Alcohol Use: No (DENIES) Hx Substance Use: Yes (heavy use of marijuana) Hx Tobacco Use: No (DENIES) Smoking Status: Never smoker FmHx Family History: No diabetes Physical Exam Vitals Vital Signs Date Temp Pulse Resp B/P (MAP) Pulse Ox O2 O2 Flow FiO2 Time Delivery Rate 08/25/18 97.7 79 18 137/84 99 19:59 (101) Physical Exam GENERAL: Well-developed, well-nourished male. Appears in no acute distress. HEAD: Normocephalic, atraumatic. EYES: Pupils are equally reactive bilaterally. EOMs grossly intact. No conjunctival erythema. ENT: Moist mucous membranes. No uvula deviation. No kissing tonsils. NECK: Supple. No meningismus. Normal range of motion of the neck. LUNG: Clear to auscultation bilaterally. No rhonchi, wheezing, rales or coarse breath sounds. HEART: Regular rate and rhythm. No murmurs, rubs or gallops. ABDOMEN: No scars, ecchymosis or rashes noted. Soft, nontender, and nondistended. Positive bowel sounds in all four quadrants. No rebound tenderness, no guarding. (-) McBurney's point tenderness. No CVA tenderness. BACK: No midline tenderness. EXTREMITIES: Equal pulses bilaterally. No peripheral clubbing, cyanosis or edema. No unilateral leg swelling. NEUROLOGIC: Alert and oriented. Moving all four extremities without any difficulty. Normal speech. Steady gait. SKIN: 2 cm round, erythematous abscess noted in the patient's left axilla. Fluctuance noted in the center of this lesion. No streaking. No active bleeding. 2 1 cm round, erythematous boil-like lesions noted on the patient's bilateral flanks. Results 24 hrs Current Medications Medications Dose Sig/Leigh Ann Start Time Status Last (Trade) Ordered Route PRN Stop Time Admin Dose Reason Admin Diphtheria/ 0.5 ml ONCE ONCE 08/26/18 DC 08/26/18 Tetanus/Acell IM* 00:00 00:15 Pertussis 08/26/18 00:01 (Adacel) Lidocaine 20 ml ONCE ONCE 08/26/18 DC (Xylocaine SC 00:00 1% (Mdv) 20 08/26/18 00:01 ml) Procedures/MDM ED COURSE: The patient was stable throughout ED course. I kept the patient and/or family informed of laboratory and diagnostic imaging results throughout the ED course. PROCEDURES: INCISION AND DRAINAGE: The patient was verbally consented prior to procedure. Patient was explained the risks, benefits and alternatives to this procedure. Location: L axilla Abscess size: 2 cm Anesthesia: local 1% lidocaine, no epi, 1 cc Preparation: The area was prepped in a sterile fashion using betadine x3 cleanses. A sterile field was prepared. Technique: A sterile 11 blade scalpel was used to make a 1 cm linear incision into the abscess. Procedure: A midline abscess incision was made using a sterile scalpel in a linear fashion. Purulent material was expressed with direct pressure. Blunt probing was used to break up loculations. Bleeding was minimal. Packing: None The patient tolerated the procedure well with no complications. The wound was dressed in sterile gauze. The patient was neurovascularly intact post-procedure. Post-procedural wound care was discussed with the patient. MEDICAL DECISION MAKING: This is a 28-year-old male presents to the ER for concerns of an abscess in his left axilla. Patient denies fevers or chills. Of note, patient is a type I diabetic. Patient states his blood sugars are controlled and his blood sugar this morning was in the 120s. Vital signs were reviewed. Patient was afebrile. Incision and drainage was performed. See procedure note above. Patient will be discharged on Keflex and Bactrim advised to return in 2 days for wound recheck. Patient was advised to monitor his blood sugars very closely. Low suspicion for deep space infection or sepsis. Patient was nontoxic, non-opening prior to discharge. PRESCRIPTIONS: Bactrim, Keflex DISCHARGE: At this time, the patient is stable for discharge and outpatient management. Post-procedural wound care was discussed with the patient. The patient has been advised to return to the ER in 2 days for a wound check. I have instructed the patient to promptly return to the ER for any new or worsening symptoms including increasing pain, fever, warmth, redness or swelling. The patient and/or family expressed understanding of and agreement with this plan. All questions were answered. Home care instructions were provided. Disclaimer: Inadvertent spelling and grammatical errors are likely due to EHR/ dictation software use and do not reflect on the overall quality of patient care. Also, please note that the electronic time recorded on this note does not necessarily reflect the actual time of the patient encounter. Departure Diagnosis: Primary Impression: Abscess Condition: Fair Patient Instructions: Abscess, Incision And Drainage Referrals: [facility] YOU HAVE RECEIVED A MEDICAL SCREENING EXAM AND THE RESULTS INDICATE THAT YOU DO NOT HAVE A CONDITION THAT REQUIRES URGENT TREATMENT IN THE EMERGENCY DEPARTMENT. FURTHER EVALUATION AND TREATMENT OF YOUR CONDITION CAN WAIT UNTIL YOU ARE SEEN IN YOUR DOCTORS OFFICE WITHIN THE NEXT 1-2 DAYS. IT IS YOUR RESPONSIBILITY TO MAKE AN APPOINTMENT FOR FOLOW-UP CARE. IF YOU HAVE A PRIMARY DOCTOR --you should call your primary doctor and schedule an appointment IF YOU DO NOT HAVE A PRIMARY DOCTOR YOU CAN CALL OUR PHYSICIAN REFERRAL HOTLINE AT IF YOU CAN NOT AFFORD TO SEE A PHYSICIAN YOU CAN CHOSE FROM THE FOLLOWING [facility] [address] [facility]. [facility] [address] [facility] [address] [facility] [address] [facility] [address] [facility]. [facility] [address] [facility]. [facility] YOU HAVE RECEIVED A MEDICAL SCREENING EXAM AND THE RESULTS INDICATE THAT YOU DO NOT HAVE A CONDITION THAT REQUIRES URGENT TREATMENT IN THE EMERGENCY DEPARTMENT. FURTHER EVALUATION AND TREATMENT OF YOUR CONDITION CAN WAIT UNTIL YOU ARE SEEN IN YOUR DOCTORS OFFICE WITHIN THE NEXT 1-2 DAYS. IT IS YOUR RESPONSIBILITY TO MAKE AN APPOINTMENT FOR FOLOW-UP CARE. IF YOU HAVE A PRIMARY DOCTOR --you should call your primary doctor and schedule and appointment IF YOU DO NOT HAVE A PRIMARY DOCTOR YOU CAN CALL OUR PHYSICIAN REFERRAL HOTLINE AT . IF YOU CAN NOT AFFORD TO SEE A PHYSICIAN YOU CAN CHOSE FROM THE FOLLOWING [facility] INSTITUTIONS: [facility] [address] [place] [address] [facility] [address] [place] [address] [facility] [address] [place] [address] Additional Instructions: Wound recheck in 2 days. Monitor your symptoms closely. Call your primary care doctor TOMORROW for an appointment during the next 1-2 days.See the doctor sooner or return here if your condition worsens before your appointment time. MARIA D ALEJANDRA PA-C Aug 26, 2018 01:43
== END 2018-08-26 01:30 | disposition home or self-care (01) ==
LOC: FTE 19:12
DX: L02.412 Cutaneous abscess of left axilla (principal); E10.9 Type 1 diabetes mellitus without complications; Z79.4 Long term (current) use of insulin; Z23 Encounter for immunization
CPT/HCPCS: 90471; 90715